=== PATIENT | male | born 1945 | race Caucasian/White ===

== ENCOUNTER → 2016-10-07 | Outpatient (CLI) | payer OTHER, MEDICARE | LOC: BHFA 14:45 | PROVIDERS: ATTEND Internal Medicine Cardiovascular Disease | DX: I50.9 Heart failure, unspecified (principal); I25.10 Atherosclerotic heart disease of native coronary artery without angina pectoris ==

== ENCOUNTER → 2017-03-07 | Outpatient (CLI) | payer OTHER, MEDICARE | LOC: FIMAGING 11:53 | PROVIDERS: ATTEND Internal Medicine | DX: M54.2 Cervicalgia (principal); M54.6 Pain in thoracic spine; I65.23 Occlusion and stenosis of bilateral carotid arteries ==

== ENCOUNTER → 2017-05-05 | Outpatient (CLI) | payer OTHER, MEDICARE | LOC: BHFA 15:45 | PROVIDERS: ATTEND Internal Medicine Cardiovascular Disease | DX: I25.10 Atherosclerotic heart disease of native coronary artery without angina pectoris (principal); E78.5 Hyperlipidemia, unspecified; I11.9 Hypertensive heart disease without heart failure; I43 Cardiomyopathy in diseases classified elsewhere ==

== ENCOUNTER 2017-06-03 10:32 | Emergency (ER) | payer OTHER, MEDICARE ==
--- NOTE | 2017-06-03 10:57 | EDPHY ---
H & P Stated Complaint: episode of sweating and slower cognitive functioning today Time Seen by Provider: 06/03/17 10:43 HPI/ROS: CHIEF COMPLAINT: Confusion HISTORY OF PRESENT ILLNESS: The patient is an anticoagulated 71 y/o male with a history of diabetes and CAD arriving with his complaining of cognitive slowness onset 1.5 hours ago, around 09:30. This morning he couldn't figure out how to put his shoes on or tie them. On the car ride to his family member's doctor's appointment he began to feel like he was "gradually slipping into confusion." He felt very hungry and had profuse sweating. He notes he recently started a new unknown diabetes medication and is compliant with all of his other medications. He normally checks his BGL three times daily and runs between 100-300. His last HgbA1C was 8.2. His BGL on arrival here was 52 and he feels much better after drinking juice. He denies recent illness, abdominal pain , chest pain, dizziness, headache, vomiting, fever, cough. He does feel more fatigued for the last 2 weeks since increasing his Carvedilol from 12.5mg to 25mg. REVIEW OF SYSTEMS: A 10 point review of systems was performed and is negative with the exception of the elements mentioned in the history of present illness. Past medical history: on Plavix; Hypertension; CAD; Diabetes - Glimepiride, Metformin, Lantus; Hearing loss - hearing aid; kidney stones; TIA in 2013 Past surgical history: Two cardiac stents; left arm ortho surgery due to trauma ; appendectomy; tonsillectomy Family history: noncontributory Social history: at bedside. Nonsmoker. He drinks a glass of wine daily. Retired, former middle school math and computer mechanic. PCP: Dr. Phoebe Be. Plug Overwrap Machine Tender: Dr. Macdonald. General Appearance: Alert, no acute distress. BP 148/87 Eyes: Pupils equal and round, no conjunctival injection, no discharge. ENT, Mouth: Mucous membranes are moist, no oropharyngeal erythema or edema. Neck: No lymphadenopathy, supple. Respiratory: Lungs are clear to auscultation; no wheezes, rales, or rhonchi. Cardiovascular: Regular rate and rhythm; no murmur, rub, or gallop. Gastrointestinal: Abdomen is soft and non tender, no masses or organomegaly, bowel sounds normal. Skin: Warm and dry, no rashes, normal color. Back: Nontender to palpation over the thoracolumbar spine. Extremities: No lower extremity edema, no calf tenderness or swelling. Neurological: Alert and oriented. Moving all four extremities easily and equally. Cranial nerves II through XII are examined and are intact (visual acuity not tested). Strength is 5 over 5 bilaterally with testing of all major motor groups. Sensation is intact to light touch over all 4 extremities. Gait is normal. [id number] is performed accurately. Psychiatric: Normal affect. - Personal History Current Tetanus/Diphtheria Vaccine: Yes - Medical/Surgical History Hx Asthma: No Hx Chronic Respiratory Disease: No Hx Diabetes: Yes Hx Cardiac Disease: Yes Hx Renal Disease: No Hx Cirrhosis: No Hx Alcoholism: No Hx HIV/AIDS: No Hx Splenectomy or Spleen Trauma: No Other PMH: LAD stent . stent 2015. tia 04/2014. Tonsilectomy. appy. Left arm repair with hardware. kidney stones. DM2. HTN - Social History Smoking Status: Never smoked Constitutional: Initial Vital Signs Temperature (C) 36.3 C 06/03/17 10:37 Heart Rate 73 06/03/17 10:37 Respiratory Rate 19 06/03/17 10:37 Blood Pressure 148/87 H 06/03/17 10:37 O2 Sat (%) 97 06/03/17 10:37 O2 Delivery Mode Room Air Allergies/Adverse Reactions: Sulfa (Sulfonamide Antibiotics) Allergy (Verified 06/03/17 10:35) Home Medications: Medication Instructions Recorded Aspirin [Aspirin 81mg (*)] 81 mg PO DAILY 05/28/14 Clopidogrel Bisulfate [Plavix (*)] 75 mg PO DAILY 05/28/14 Benazepril HCl [Lotensin (*)] 40 mg PO DAILY 03/02/16 Canagliflozin/Metformin HCl 1 each PO BIDMEAL 03/02/16 [Invokamet 50-500 mg Tablet] Glimepiride [Amaryl 2 MG (*)] 2 mg PO BIDMEAL 03/02/16 metFORMIN HCL [Glucophage 500 mg 500 mg PO DAILY@12 03/02/16 (*)] Simvastatin [Zocor] 80 mg PO HS 04/09/16 Temazepam [Restoril 15 MG (*)] 15 mg PO HSPRN PRN 04/09/16 Canagliflozin [Invokana] 100 mg PO DAILY@12 07/09/16 Carvedilol [Coreg (*)] 12.5 mg PO BID 07/09/16 Multivitamins [Multivitamin (*)] 1 each PO DAILY 07/09/16 Omeprazole [Prilosec 20 mg] 40 mg PO DAILY 07/09/16 diphenhydrAMINE [Benadryl 50 MG 50 mg PO HS 07/09/16 (*)] Acetaminophen [Tylenol 325mg (*)] 650 mg PO Q4HRS PRN #0 tab 07/10/16 Aspirin [Aspirin 81mg (*)] 81 mg PO DAILY #0 tab.chew 07/10/16 guaiFENesin/CODEINE PHOS 10 ml PO Q6 PRN #100 ml 07/17/16 [Robitussin AC oral liquid (RX)] Lantus 100 UNITS/ML (*) 06/03/17 Medical Decision Making ED Course/Re-evaluation: 71 y/o male with a history of diabetes who presents for evaluation of confusion onset this morning. His symptoms are consistent with hypoglycemia and his BGL upon arrival here was 52. He feels significantly improved after drinking juice. IV established. Labs drawn. We will attempt to contact his pharmacy to determine what additional diabetic medication he is taking. The new medication he is taking is called Actos. 1200: Repeat BGL is 101. 1340: BGL is 139. He has eaten lunch. He remains neurologically intact. 1412: Consulted with Dr. Macdonald, patient's medical office manager. She recommends decreasing nighttime dose of insulin. Instructions relayed to patient and his . He will follow up PC and/or medical office manager. I think that this morning's altered mental status is due to hypoglycemia. I do not find evidence of infection, electrolyte abnormality, and do not suspect stroke or ICH. Departure - Departure Disposition: Home, Routine, Self-Care Clinical Impression: Confusion, Hypoglycemia Condition: Good Instructions: Hypoglycemia in a Person with Diabetes (ED) Additional Instructions: 1. Follow up with your medical office manager within the next 1-2 days. Call her office tomorrow to arrange an appointment. 2. Change your nighttime dose of Lantus to 10 units. 3. Do not take any of your rapid acting insulin--I know that you didn't take this today, don't use it. Otherwise continue with your or medications as prescribed. 4. Continue to monitor your blood sugars and record these values. Referrals: Phoebe Be MD [Primary Care Provider] - As per Instructions Trinidad Macdonald MD [Medical Doctor] - As per Instructions Report Scribed for: Nandini Matias Report Scribed by: Yanet Neal Date of Report: 06/03/17 Time of Report: 11:32 Physician Review and Approval Statement: 06/07/17 12:24 Portions of this chart were entered by a medical records manager. I personally performed the HPI, PE, MDM. I have reviewed the document and agree with the contents.
[2017-06-03 14:07] VITALS: BP 154/92; PULSE 69; RESP 15; O2SAT 98
[2017-06-03 14:26] VITALS: TEMP 98.8
== END 2017-06-03 14:25 | disposition home or self-care (01) ==
DX: R41.0 Disorientation, unspecified (principal); E11.649 Type 2 diabetes mellitus with hypoglycemia without coma; I10 Essential (primary) hypertension; Z79.4 Long term (current) use of insulin; Z79.82 Long term (current) use of aspirin; Z79.84 Long term (current) use of oral hypoglycemic drugs; Z95.5 Presence of coronary angioplasty implant and graft
CPT/HCPCS: 82947-QW

== ENCOUNTER → 2017-07-18 | Outpatient (CLI) | payer OTHER, MEDICARE ==
[~2017-07-18] MED LIST: IOPAMIDOL (ISOVUE-300) 100 ML BTL ONE
== END ==
LOC: CIMAGING 12:17
PROVIDERS: ATTEND Internal Medicine
DX: S22.31XA Fracture of one rib, right side, initial encounter for closed fracture (principal); M48.061 Spinal stenosis, lumbar region without neurogenic claudication; M51.26 Other intervertebral disc displacement, lumbar region; M46.96 Unspecified inflammatory spondylopathy, lumbar region; I70.0 Atherosclerosis of aorta; D73.89 Other diseases of spleen
CPT/HCPCS: 74177; Q9967; 82565-PO

== ENCOUNTER → 2018-01-21 | Outpatient (CLI) | payer OTHER, MEDICARE | LOC: BHFA 13:15 | PROVIDERS: ATTEND Internal Medicine Cardiovascular Disease | DX: I25.10 Atherosclerotic heart disease of native coronary artery without angina pectoris (principal); I50.9 Heart failure, unspecified | CPT/HCPCS: 78452; 93017; 93880; A9500; J2785 ==

== ENCOUNTER → 2018-02-04 | Outpatient (CLI) | payer OTHER, MEDICARE | LOC: BHFA 13:15 | PROVIDERS: ATTEND Internal Medicine Cardiovascular Disease | DX: I25.10 Atherosclerotic heart disease of native coronary artery without angina pectoris (principal); R07.9 Chest pain, unspecified; R94.30 Abnormal result of cardiovascular function study, unspecified ==

== ENCOUNTER 2018-02-10 07:21 | Day surgery (SDC) | payer OTHER, MEDICARE ==
[2018-02-10] MEDS ORDERED: NS 1,000 ML IV SCH (07:25)
[2018-02-10] MEDS ORDERED: TEMAZEPAM 15 MG CAP PO PRN (07:25)
[2018-02-10] MEDS ORDERED: FAMOTIDINE 20 MG TAB PO ONE (07:25)
[2018-02-10] MEDS ORDERED: NITROGLYCERIN 0.4 MG BTL SL PRN ×2 (07:25→12:47)
[2018-02-10] MEDS ORDERED: diphenhydrAMINE 25 MG CAP PO ONE (07:25)
[2018-02-10] MEDS ORDERED: ASPIRIN EC 325 MG TAB PO ONE (07:25)
[2018-02-10] MEDS ORDERED: ACETAMINOPHEN 325 MG TAB PO PRN (07:25)
[2018-02-10] MEDS ORDERED: DIAZEPAM 5 MG TAB PO ONE (07:25)
--- NOTE | 2018-02-10 07:44 | CPEKG ---
Heart Rate: 74 RR Interval: 811 P-R Interval: 180 QRSD Interval: 94 QT Interval: 400 QTC Interval: 444 P [place]: 36 QRS [place]: 2 T Wave [place]: 15 EKG Severity - NORMAL ECG - EKG Impression: SINUS RHYTHM EKG Impression: COMPARED WITH 07/10/2016, T ABNORMALITIES HAVE IMPROVED. QT INTERVAL IS SHORTER Electronically Signed By: Yolanda Serna 10-Feb-2018 20:31:21
[2018-02-10 08:09] LABS: PLATELET COUNT 252 10^3/uL (150-400)
[2018-02-10 08:13] LABS: INR 1.06 (0.83-1.16)
[2018-02-10] MEDS ORDERED: fentaNYL 100 MCG/2 ML INJ ONE (09:03)
[2018-02-10] MEDS ORDERED: LIDOCAINE 1% 300 MG/30 ML SDV ONE (09:03)
[2018-02-10] MEDS ORDERED: MIDAZOLAM 2 MG/2 ML VIAL ONE (09:04)
[2018-02-10] MEDS ORDERED: IOPAMIDOL (ISOVUE-370) 150 ML BTL IV ONE (09:04)
[2018-02-10] MEDS ORDERED: PRASUGREL HCL 10 MG TAB PO ONE (09:45)
--- NOTE | 2018-02-10 09:48 | PDHPUP ---
History & Physical Update H&P update statement: This history and physical update is based on an assessment of the patient which was completed after admission or registration (within 24 hours), but prior to the surgery/procedure. H&P update: H&P reviewed & patient examined, no change in patient's condition since H&P completed
--- NOTE | 2018-02-10 09:48 | PDPROPOC ---
Sedation Plan of Care Sedation Plan of Care: mental status noted, patient can tolerate sedation ASA Classification: ASA 2 Planned drugs: fentanyl, midazolam Mallampati Score: Class 2 Mallampati Reference Image: Patient passed 3-3-2 rule?: Yes
[2018-02-10] MEDS ORDERED: BIVALIRUDIN 250 MG/5 ML VIAL IV ONE (10:23)
--- NOTE | 2018-02-10 12:18 | CPIP ---
[f rep st] INVASIVE CARDIAC PROCEDURE DATE OF PROCEDURE: 02/10/2018 INDICATION FOR PROCEDURE: Chest pain. PROCEDURE: 1. Nonselective right groin sheathogram. 2. Bilateral selective coronary angiography. 3. Left heart catheterization. 4. Left ventriculogram. HISTORY: Briefly, this is a 72-year-old male with history of multiple stents to the proximal LAD, wh o has been complaining of unstable anginal like symptoms as an outpatient with positive stress testin g. Given these findings, patient consented for left heart catheterization. DESCRIPTION OF PROCEDURE: After informed consent was obtained, the patient was brought to [facility] where the right groin was prepped and draped in usual sterile fashion. Using lidocaine, a short 6-Panamanian s sergio introduced into the right femoral artery verified angiographically. Using a 6-Panamanian sheath, a JL4 catheter was advanced to the left coronary artery. Images of the left coronary artery revealed normal left main. There was a ramus intermedius which had 40% to 50% disease in its mid aspect. The re was a small circumflex system giving off a marginal 1 proximally, which was healthy and free of di sease. The LAD had stents in its proximal aspect, which had severe in-stent restenosis. Distally, t he LAD appeared to be patent but small. There was a diagonal artery coming off the mid LAD which was patent as well. After images were obtained, the JL4 catheter was removed. The JR4 catheter was the n advanced to the right coronary artery. Images of the right coronary artery revealed normal ostial RCA. There was a 30% to 40% disease in the proximal RCA. Distally, the RPLS appeared to be healthy and free of disease. The RPDA had diffuse segmental areas of disease ranging from 70% to 80%. After images were obtained the JR4 catheter was removed. A pigtail catheter was advanced to left ventricl e. LVEDP is 15 mmHg. Left ventricle in ROSARIO projection showed EF of 55%, with no wall motion abnorma lities. No pullback gradient between the LV and aorta. Pigtail catheter was removed over the 0.03 5 wire. Right groin was closed with a 6-Panamanian sheath. The patient tolerated the procedure well wit h no complications. IMPRESSION: 1. Severe ISR of the proximal LAD, which has had multiple PCIs in the past with patent distal LAD. 2. Severe disease of the mid distal RPDA with moderate disease of the proximal RCA. 3. Normal ejection fraction. PLAN: Given the fact the patient has had numerous episodes in the last 15 years of in-stent restenos is of the proximal LAD and the disease appears to be progressing proximally towards the left main, I feel that we should obtain a surgical consult for possible GONZALEZ to LAD. Obviously if there is a poss ibility of a graft to the RPDA this should be entertained as well. However, there is such diffuse di sease in the RPDA there may not be any healthy areas to tie a graft into. We will consult Dr. Quintana this morning and proceed accordingly. /[id number]/MODL
[2018-02-10] MEDS ORDERED: ATROPINE SULFATE 1 MG/10 ML SYR IVP PRN (12:47)
[2018-02-10] MEDS ORDERED: OXYCODONE/APAP 5/325 TAB PO PRN (12:47)
[2018-02-10] MEDS ORDERED: ONDANSETRON 4 MG/2 ML VIAL IVP PRN (12:47)
[2018-02-10] MEDS ORDERED: HYDROCODONE/APAP 5/325 TAB PO PRN (12:47)
[2018-02-10 15:41] VITALS: BP 161/78
== END 2018-02-10 16:10 | disposition home or self-care (01) ==
LOC: FCATH 07:21
PROVIDERS: ATTEND Internal Medicine Cardiovascular Disease
PROC: B2151ZZ Fluoroscopy of Left Heart using Low Osmolar Contrast (ICD-10-PCS; principal; 2018-02-10)
PROC: B2111ZZ Fluoroscopy of Multiple Coronary Arteries using Low Osmolar Contrast (ICD-10-PCS; principal; 2018-02-10)
PROC: 4A023N7 Measurement of Cardiac Sampling and Pressure, Left Heart, Percutaneous Approach (ICD-10-PCS; principal; 2018-02-10)
DX: R07.9 Chest pain, unspecified (principal); T82.855A Stenosis of coronary artery stent, initial encounter; I25.10 Atherosclerotic heart disease of native coronary artery without angina pectoris; R94.30 Abnormal result of cardiovascular function study, unspecified; E11.22 Type 2 diabetes mellitus with diabetic chronic kidney disease; N18.3 Chronic kidney disease, stage 3 (moderate); I50.9 Heart failure, unspecified; I77.89 Other specified disorders of arteries and arterioles; G25.0 Essential tremor; E78.5 Hyperlipidemia, unspecified; G47.00 Insomnia, unspecified; I25.2 Old myocardial infarction; Z79.82 Long term (current) use of aspirin; Z79.4 Long term (current) use of insulin; Z82.49 Family history of ischemic heart disease and other diseases of the circulatory system; Z95.5 Presence of coronary angioplasty implant and graft; Z88.2 Allergy status to sulfonamides
CPT/HCPCS: C1760; J0583; J1644; J2250; J3010; Q9967

== ENCOUNTER 2018-02-16 11:09 | Inpatient (IN) | payer OTHER, MEDICARE ==
--- NOTE | 2018-02-16 10:27 | PDGENHP ---
History and Physical - Chief Complaint unstable angina with severe CAD - History of Present Illness 72M with unstable angina and h/o CAD s/p stenting with recent LHC revealing severe ISR of LAD stent here for elective surgical revascularization. Pt currently comfortable without chest pain or SOB. Started on ABX 02/15 for dysuria although U/A checked at urgent care unremarkable. Culture pending. Pt denies weakness, lightheadedness, SOB, cough, orthopnea, PND, CP, palpitations, abd pain, dysuria, or LE edema. History Information - Allergies/Home Medication List Allergies/Adverse Reactions: Sulfa (Sulfonamide Antibiotics) Allergy (Intermediate, Verified 02/04/18 15:28) Hives Home Medications: Aspirin [Aspirin 81mg (*)] 81 mg PO DAILY 05/28/14 [Last Taken 02/13/18] Clopidogrel Bisulfate [Plavix (*)] 75 mg PO DAILY 05/28/14 [Last Taken 02/10/18] Benazepril HCl [Lotensin (*)] 40 mg PO DAILY@12 03/02/16 [Last Taken 02/15/18] metFORMIN HCL [Glucophage 500 mg (*)] 500 mg PO QID 03/02/16 [Last Taken ] Simvastatin [Zocor] 80 mg PO HS 04/09/16 [Last Taken 02/14/18] Temazepam [Restoril 15 MG (*)] 15 mg PO HS 04/09/16 [Last Taken 02/15/18] Carvedilol [Coreg (*)] 18.75 mg PO BID 07/09/16 [Last Taken 02/15/18] Multivitamins [Multivitamin (*)] 1 each PO DAILY 07/09/16 [Last Taken 02/13/18] diphenhydrAMINE [Benadryl 50 MG (*)] 50 mg PO HS 07/09/16 [Last Taken 2 Days Ago ~02/14/18] Insulin Glargine [Lantus 100 UNITS/ML (*)] 14 units SC HS 06/03/17 [Last Taken 02/15/18] Ascorbic Acid [Vitamin C 500 mg (*)] 500 mg PO BID 02/05/18 [Last Taken 02/13/18 ] Ibuprofen [Motrin (*)] 200 mg PO HS 02/05/18 [Last Taken 02/12/18] Insulin Glargine [Lantus 100 UNITS/ML (*)] 17 units SC DAILY 02/05/18 [Last Taken 02/15/18] Insulin Lispro [Humalog] 0 unit SQ TIDMEAL 02/05/18 [Last Taken 02/09/18] Nitroglycerin [Nitrostat 0.4 mg (*)] 0.4 mg SL Q5M PRN 02/05/18 [Last Taken Unknown] Omeprazole 40 mg PO DAILY 02/05/18 [Last Taken 02/15/18] Pioglitazone HCl [Actos 15mg (*)] 15 mg PO DAILY 02/05/18 [Last Taken 02/15/18] I have personally reviewed and updated: medical history, social history, surgical history - Past Medical History diabetes type 1, hypertension, hyperlipidemia - Surgical History Reports: no pertinent surgical hx - Social History Smoking Status: Never smoked Review of Systems Review of Systems: ROS: 10pt was reviewed & negative except for what was stated in HPI & below Physical Exam Physical Exam: Constitutional: no apparent distress, appears nourished, not in pain Eyes: anicteric sclera Ears, Nose, Mouth, Throat: moist mucous membranes, hearing normal, ears appear normal, no oral mucosal ulcers Cardiovascular: no murmur, rub, or gallop Respiratory: no respiratory distress, no rales or rhonchi, clear to auscultation Gastrointestinal: soft, non-tender abdomen Genitourinary: no bladder fullness Skin: warm, normal color Musculoskeletal: full muscle strength Neurologic: AAOx3, sensation intact bilaterally Psychiatric: interacting appropriately, not anxious, not encephalopathic, thought process linear Lab Data & Imaging Review Patient ABO/Rh AB POSITIVE 02/13/18 11:57 Antibody Screen NEGATIVE 02/13/18 11:57 Labs reviewed in [facility] remarkable for A1c 7.8%, Cr 1.5, HCT 36.5 Imaging Review: LHC in [facility] Visualized and Interpreted Chest x-ray results: Yes Chest X-Ray results: normal Visualized and Interpreted EKG results: Yes EKG Interpretation: Positive for: normal sinsus rhythm Assessment & Plan Assessment: CAD Plan: CABG today
[~2018-02-16 11:09] MED LIST changes: +CITRATE DEXTROSE SOLN 500 ML BAG MISC ONE; -IOPAMIDOL (ISOVUE-300) 100 ML BTL ONE; +MINERAL OIL 10 ML VIAL ONE; +MUPIROCIN 2% 22 GM OINT NS ONE; +PAPAVERINE HCL 60 MG/2 ML SDV ONE; +VERAPAMIL 5 MG/2 ML VIAL ONE; +ceFAZolin 2 GM/DEXTROSE 100 ML IV ONE; +niCARdipine/NACL 200 ML IV ONE
[2018-02-16] MEDS ORDERED: CALCIUM CHLORIDE 1 GM/10 ML INJ ONE ×2 (13:23→18:53)
[2018-02-16] MEDS ORDERED: PROTAMINE SULFATE 50 MG/5 ML VIAL IVP ONE (13:23)
[2018-02-16] MEDS ORDERED: MILRINONE/DEXTROSE/100 ML BAG IV ONE (13:23)
[2018-02-16] MEDS ORDERED: ALBUMIN 5% 250 ML BOTTLE IV ONE (13:23)
[2018-02-16] MEDS ORDERED: NA BICARBONATE 50 MEQ/50 ML VIAL ONE (13:24)
[2018-02-16] MEDS ORDERED: niCARdipine/NACL/200 ML BAG IV ONE (13:24)
[2018-02-16] MEDS ORDERED: CITRATE DEXTROSE SOLN 500 ML BAG ONE (13:24)
[2018-02-16] MEDS ORDERED: HEPARIN 10,000 UNIT/10 ML MDV (1,000 UNIT/ML) ONE (13:24)
[2018-02-16] MEDS ORDERED: LIDOCAINE 2% 100 MG/5 ML SYR ONE (13:24)
[2018-02-16] MEDS ORDERED: ADENOSINE 6 MG/2 ML VIAL ONE (13:24)
[2018-02-16] MEDS ORDERED: AMIODARONE HCL 150 MG/3 ML VIAL ONE (13:24)
[2018-02-16] MEDS ORDERED: DOPamine/DEXTROSE/250 ML BAG IV ONE (13:24)
[2018-02-16] MEDS ORDERED: ceFAZolin 1 GM VIAL ONE ×3 (13:25→16:44)
[2018-02-16] MEDS ORDERED: VERAPAMIL 5 MG/2 ML VIAL ONE (13:25)
[2018-02-16] MEDS ORDERED: NITROGLYCERIN/D5W 50 MG/250 ML BOTTLE IV ONE (13:25)
[2018-02-16] MEDS ORDERED: PAPAVERINE HCL 60 MG/2 ML SDV ONE (13:25)
[2018-02-16] MEDS ORDERED: MAGNESIUM SULFATE 1 GM/2 ML VIAL ONE (13:25)
[2018-02-16] MEDS ORDERED: methylPREDNISolone SOD SUCC 1 GM/8 ML VIAL ONE (13:25)
[2018-02-16] MEDS ORDERED: MINERAL OIL 10 ML VIAL ONE (13:26)
[2018-02-16] MEDS ORDERED: MIDAZOLAM 2 MG/2 ML VIAL IVP ONE (13:54)
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
[2018-02-16] MEDS ORDERED: fentaNYL 250 MCG/5 ML INJ ONE ×2 (14:07→15:54)
[2018-02-16] MEDS ORDERED: PROPOFOL/EMULSION 500 MG/50 ML BOTTLE IV ONE (14:08)
[2018-02-16] MEDS ORDERED: ROCURONIUM 100 MG/10 ML VIAL ONE (14:08)
[2018-02-16] MEDS ORDERED: PHENYLEPHRINE HCL 100 MCG/ML SYR ONE ×2 (14:14→18:21)
[2018-02-16] MEDS ORDERED: MANNITOL 25% 12.5 GM/50 ML VIAL IVP ONE (15:00)
[2018-02-16] MEDS ORDERED: VERAPAMIL 5 MG, NITROGLYCERIN 2.5 MG, HEPARIN 500 UNIT, SODIUM BICARBONATE 0.2 MEQ in L... MISC ONE (15:00)
[2018-02-16] MEDS ORDERED: PHENYLEPHRINE HCL 50 MG in NS 250 ML IV ONE (15:00)
[2018-02-16] MEDS ORDERED: SODIUM BICARBONATE 20 MEQ, LIDOCAINE 1% 10 ML in NORMOSOL-R 1,000 ML MISC ONE (15:00)
[2018-02-16] MEDS ORDERED: INSULIN REGULAR HUMAN 100 UNIT in NS 100 ML IV ONE (15:00)
[2018-02-16] MEDS ORDERED: AMINOCAPROIC ACID 5 GM/20 ML VIAL IV ONE (15:00)
[2018-02-16] MEDS ORDERED: NOREPINEPHRINE BITARTRATE 16 MG in NS 250 ML IV ONE (15:00)
--- NOTE | 2018-02-16 16:50 | ASMTCMCOM ---
CM Note CM Note Notes: 72yr old male admitted for unstable angina, CP. Has a Hx of CAD-stent, DM-1, HTN, HLD. To have a CABG. Lives with his in [place]. Therapies to [facility] to follow for discharge needs. Date Signed: 02/16/2018 04:49 PM Electronically Signed By:Samantha Najera LCSW
[2018-02-16] MEDS ORDERED: HYDROmorphONE/DILAUDID 2 MG/ML INJ ONE ×2 (18:06→18:14)
[2018-02-16] MEDS ORDERED: MIDAZOLAM 2 MG/2 ML VIAL ONE (18:27)
[2018-02-16] MEDS ORDERED: METOCLOPRAMIDE 10 MG/2 ML VIAL IVP PRN (18:43)
[2018-02-16] MEDS ORDERED: PANTOPRAZOLE SODIUM 40 MG VIAL IVP ONE (18:43)
[2018-02-16] MEDS ORDERED: ONDANSETRON 4 MG/2 ML VIAL IVP PRN (18:43)
[2018-02-16] MEDS ORDERED: fentaNYL 100 MCG/2 ML INJ IVP PRN (18:43)
[2018-02-16] MEDS ORDERED: CEPACOL LOZENGE PO PRN (18:43)
[2018-02-16] MEDS ORDERED: HYDROCODONE/APAP 5/325 TAB PO PRN (18:43)
[2018-02-16] MEDS ORDERED: LACTULOSE 20 GM/30 ML UDCUP PO PRN (18:43)
[2018-02-16] MEDS ORDERED: MAGNESIUM HYDROXIDE 30 ML UDCUP PO PRN (18:43)
[2018-02-16] MEDS ORDERED: POTASSIUM Cl (KCl) 50 ML IV PRN (18:43)
[2018-02-16] MEDS ORDERED: SODIUM CL NASAL 45 ML BTL EACHNARE PRN (18:43)
[2018-02-16] MEDS ORDERED: ACETAMINOPHEN 650 MG SUPP PR PRN (18:43)
[2018-02-16] MEDS ORDERED: MEPERIDINE 25 MG/0.5 ML AMP IVP PRN (18:43)
[2018-02-16] MEDS ORDERED: BISACODYL 10 MG SUPP PR PRN (18:43)
[2018-02-16] MEDS ORDERED: MAGNESIUM SULF 2 GM/WATER 50 ML IV ONE (18:43)
[2018-02-16] MEDS ORDERED: D50W 25 GM/50 ML SYR IVP PRN (18:43)
[2018-02-16] MEDS ORDERED: NS 1,000 ML IV SCH (18:45)
[2018-02-16] MEDS ORDERED: PHENYLEPHRINE 10 MG/ML SDV ONE (18:53)
[2018-02-16] MEDS ORDERED: INSULIN REGULAR HUMAN 100 UNIT in NS 100 ML IV SCH (19:00)
--- NOTE | 2018-02-16 19:09 | GOP ---
[f rep st] OPERATIVE REPORT DATE OF OPERATION: 02/16/2018 SURGEON: Toi Quintana DO FUNNEL SETTER: Lazaro Krueger P.A.-C. ANESTHESIOLOGIST: London Bruce MD. PREOPERATIVE DIAGNOSIS: Unstable angina pectoris with 3-vessel coronary artery disease 2 obstructive . POSTOPERATIVE DIAGNOSIS: Unstable angina pectoris with 3-vessel coronary artery disease 2 obstructiv e. PROCEDURE PERFORMED: 1. Coronary artery bypass grafting x3 with the left internal mammary artery to the left anterior sena cending, saphenous vein graft to the 1st diagonal, and saphenous vein graft to the distal posterior d escending artery. 2. Endoscopic vein harvest. 3. Suture ligation of the left atrial appendage. FINDINGS: Patient was noted to have significant coronary artery disease. Please see cath report. DESCRIPTION OF PROCEDURE: He was consented for surgery, brought to the operating room intubated. Mo nitoring lines were placed. He was prepped and draped in sterile classical manner. Sternotomy was p erformed. Mammary was harvested. The vein was harvested endoscopically from the left leg by GENARO Hubbard, who first assisted throughout the procedure. The patient was heparinized. Cannulated bypa ss was begun. A cardioplegic arrest was obtained with antegrade cardioplegia and topical hypothermia as well as systemic cooling. Initially, the distal PDA was performed. It was a 1.3 mm diffusely di seased vessel; however, had good flow and a graft on injection post completion. The proximal anastom osis was then brought off the ascending aorta. We then doubly ligated the left atrial appendage with silk ties. We then proceeded with grafting a diagonal with a good quality vein which was brought of f the ascending aorta. It was a 1.5 mm vessel. We then while rewarming was begun, the mid-LAD was g rafted where it was a 2 mm vessel with a good quality mammary. It was tacked to the epicardium. The cross-clamp was removed with suction on the ascending aortic vent. Spontaneous cardiac activity was noted to resume. The patient was rewarmed, weaned from bypass. Heparin was reversed with protamine . The cannula was removed and oversewn. 2 ventricular pacing wires, 1 left pleural, and 1 mediastin al drain were placed. The thymic fat could not be closed because of tension on the grafts. For that reason, they were left open. The sternum was closed in standard fashion. Patient was returned to [facility] in stable condition. /[id number]/MODL
--- NOTE | 2018-02-16 19:15 | POSTANESTH ---
Post Anesthetic Evaluation Cardiovascular Status: Normal, Stable Respiratory Status: Requires Airway Assist (intubated) Level of Consciousness/Mental Status: Moderately Sleepy Pain Control: Adequate, Prn Tx Ordered Nausea/Vomiting Control: Adequate, Prn Tx Ordered Complications Possibly Related to Anesthesia: None Noted
--- NOTE | 2018-02-16 19:18 | CPEKG ---
Heart Rate: 71 RR Interval: 845 P-R Interval: 196 QRSD Interval: 98 QT Interval: 448 QTC Interval: 487 P [place]: 22 QRS [place]: 2 T Wave [place]: 28 EKG Severity - BORDERLINE ECG - EKG Impression: SINUS RHYTHM EKG Impression: BORDERLINE PROLONGED QT INTERVAL Electronically Signed By: Zeus Feldman 18-Feb-2018 20:37:38
[2018-02-16] MEDS ORDERED: DEXMEDETOMIDINE IN 0.9 % NACL 100 ML IV SCH (20:00)
[2018-02-16] MEDS: ALBUMIN 5% 250 ML IV PRN ×2 (20:30→21:10)
[2018-02-16] MEDS: ceFAZolin 2 GM/DEXTROSE 100 ML IV SCH (22:16)
[2018-02-16] MEDS: SENNOSIDES/DOCUSATE SODIUM TAB PO SCH (22:38)
[2018-02-16] MEDS: MUPIROCIN 2% 22 GM OINT NS SCH (22:38)
[2018-02-16] MEDS ORDERED: ALBUMIN 5% 250 ML IV ONE (23:00)
[2018-02-16] MEDS ORDERED: NOREPINEPHRINE BITARTRATE 16 MG in NS 250 ML IV SCH (23:00)
[2018-02-16] MEDS ORDERED: AMIODARONE HCL 150 MG/100 ML BAG (1.5 MG/ML) IV ONE (23:14)
[2018-02-16] MEDS ORDERED: AMIODARONE 6HR INFSN (ORDER 2/3) PREMIX IV ONE (23:30)
[2018-02-16] MEDS ORDERED: AMIODARONE HCL 100 ML IV ONE (23:30)
[2018-02-17] MEDS ORDERED: AMIODARONE 18HR INFSN (ORDER 3/3) IV ONE (05:30)
[2018-02-17] MEDS ORDERED: ALBUMIN 5% 250 ML IV ONE (13:00)
[2018-02-17 20:43] LABS: PLATELET COUNT 187 10^3/uL (150-400)
[2018-02-17] MEDS ORDERED: INSULIN GLARGINE 100 UNITS/ML UNIT SC SCH (21:00)
[2018-02-17] MEDS ORDERED: FUROSEMIDE 20 MG/2 ML VIAL IVP ONE (22:45)
[2018-02-17] MEDS ORDERED: SODIUM BICARBONATE 50 MEQ/50 ML SYR IVP ONE (22:45)
[2018-02-17] MEDS ORDERED: D50W 25 GM/50 ML SYR IVP PRN (23:23)
[2018-02-18] MEDS: HEPARIN 5,000 UNIT/0.5 ML INJ SC SCH ×6 (05:12→20:47)
[2018-02-18] MEDS: ceFAZolin 2 GM/DEXTROSE 100 ML IV SCH ×4 (05:12→05:49)
[2018-02-18] MEDS: MUPIROCIN 2% 22 GM OINT NS SCH ×3 (05:13→09:06)
[2018-02-18] MEDS: ASPIRIN 81 MG CHEWABLE TAB PO SCH ×2 (05:13→08:01)
[2018-02-18] MEDS: PANTOPRAZOLE SODIUM 40 MG TAB PO SCH ×2 (05:13→08:01)
[2018-02-18] MEDS: SENNOSIDES/DOCUSATE SODIUM TAB PO SCH ×4 (05:14→20:46)
[2018-02-18] MEDS: INSULIN REGULAR HUMAN 100 UNIT/ML UNIT SC SCH ×7 (05:15→21:34)
--- NOTE | 2018-02-18 07:40 | SOAPPROG ---
SOAP Progress Note Assessment/Plan: Assessment: Yesterday's note/orders lost during [employer] purge POD#2 CABG x 3 (GONZALEZ-LAD, SV-D1, SV-distal PDA), EVH left thigh, prophylactic suture ligation of the left atrial appendage Sx progressive CAD with severe ISR of LAD - Fully revascularized with CABG. Plavix discontinued. Secondary prevention with ASA, BB as allowed by BP, and statin when eating well. Acute postoperative respiratory insufficiency - Kept intubated night of surgery for low tidal volumes and hemodynamic lability. Successfully extubated POD#1. Minimal supplemental O2 requirement. Postop paroxysmal atrial fibrillation - Assoc with mild hypotension. Successfully converted to SR on amio. Adjunctive BB as allowed by BP. [id number]- VASc score of 5. Antithrombotic prophylaxis with Eliquis if recurrent arrhythmia. Acute expected blood loss anemia - Stable. No transfusions required. Chronic sCHF - Medically compensated. Preop LVEF 55%, LVEDP 15. Marginal SBPs in AF, requiring intermittent low dose pressor support. Currently on dopa at 2 mcg/kg/min. Robust MAPs overnoc. Adequately diuresing moderate volume overload with stable renal fx. Rapid dopa wean planned this am. Staggered reintro of heart failure meds as tolerated. CKD3 - Baseline Cr 1.3. Stable. IDDM - Preop A1c of 7.8%. Postop hyperglycemia controlled with insulin gtt. Transition to basal/prandial/SSI per ICU. Hospitalist to assist with transition to home regimen. Hx of recent dysuria - Treated with Abx. Monitor for recurrence with liu out. Plan: Wean dopa to MAP > 70. Remove rashel if SBP > 100 held off dopa. Transition amio to orals. Adjust oral analgesia. Hospitalist consult for glycemic control. Possible tx to PCU later today if rhythm and BP stable. 02/18/18 07:59 Subjective: Hurting on [place] alone. A little dizzy getting OOB this am, ok now. No nausea. Thirsty. Objective: Vital Signs Temp Pulse Resp BP Pulse Ox 36.4 C 81 16 149/60 H 92 02/16/18 11:58 02/17/18 06:00 02/17/18 06:00 02/17/18 06:00 02/17/18 06:00 Laboratory Results 02/18/18 06:05 02/18/18 06:05 02/17/18 02/18/18 02/19/18 05:59 05:59 05:59 Intake Total 492 Output Total 1125 Balance -633 Physical Exam - Physical Exam General Appearance: alert, mild distress (cooperating with exam) Respiratory: crackles (coarse left sided), other (blakes x 2 to bulb suction, serosang drainage) Cardiac/Chest: regular rate, rhythm, friction rub, other (Sternotomy CDI. Vwires intact.) Abdomen: non-tender, soft, other (hypoactive BS) Skin: warm/dry Extremities: swelling (1+ gen), other (LLE venotomy CDI) ICD10 Worksheet Patient Problems: Problems Problem Status Onset Acute blood loss anemia Acute CAD (coronary artery disease) Acute Coronary stent restenosis Acute S/P CABG x 3 Acute Chest pain Acute Chronic Disease Mgmt/Transitional Care Acute
[2018-02-18] MEDS: AMIODARONE HCL 200 MG TAB PO SCH ×2 (08:01→20:46)
[2018-02-18] MEDS: INSULIN GLARGINE 100 UNITS/ML UNIT SC SCH ×2 (08:51→10:38)
[2018-02-18] MEDS: oxyCODONE IR 5 MG TAB PO PRN ×4 (08:55→20:46)
[2018-02-18] MEDS ORDERED: FUROSEMIDE 40 MG/4 ML VIAL IVP ONE ×2 (09:14→17:00)
[2018-02-18] MEDS ORDERED: HYDROmorphONE/DILAUDID 2 MG TAB PO PRN (10:00)
--- NOTE | 2018-02-18 10:56 | PDMN ---
Medical Necessity Medical necessity: IP surgery per [facility] cpt 03159 CABG X 3
[2018-02-18] MEDS ORDERED: INSULIN LISPRO 100 UNIT/ML SC ONE (13:15)
[2018-02-18] MEDS ORDERED: INSULIN GLARGINE 100 UNITS/ML UNIT SC SCH (16:09)
[2018-02-18] MEDS ORDERED: POTASSIUM CL 10 MEQ TAB PO ONE (17:00)
[2018-02-18] MEDS: CARVEDILOL 3.125 MG TAB PO SCH (17:07)
[2018-02-18] MEDS ORDERED: ENALAPRILAT DIHYDRATE 1.25 MG/ML VIAL IVP PRN (19:00)
[2018-02-18] MEDS ORDERED: TEMAZEPAM 15 MG CAP PO PRN (21:00)
--- NOTE | 2018-02-18 21:22 | PDHOSCONS ---
History and Physical - Chief Complaint Acute chest pain - History of Present Illness PRImary Service: CT surgery Reason for consultation: Hyperglycemia PCP: Dr. Be Primary Cards: Dr. Man Primary Endo: Dr. Macdonald HPI: 72 yo M p/w acute chest pain and cath inidcative of ISR of LAD, requiring CABG. 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 He underwent 3v CABG on 02/16. Since that time, he has been on insulin gtt and was transitioned to ISS + lantus, dosed lower than his previous home dosing. 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 During his hospitalization, he has had intermittent 10/10 sharp pain located at the incision sitte, exacerbated by ambulation, and alleviated by relaxing his shoulders. His PO intake has been minimal on 02/17, increasing somewhat, to smoothies on 02/18. His gluc range on was 80-120, and on 02/18 was 280-360. History Information - Allergies/Home Medication List Allergies/Adverse Reactions: Sulfa (Sulfonamide Antibiotics) Allergy (Intermediate, Verified 02/04/18 15:28) Hives Home Medications: Aspirin [Aspirin 81mg (*)] 81 mg PO DAILY 05/28/14 [Last Taken 02/13/18] Clopidogrel Bisulfate [Plavix (*)] 75 mg PO DAILY 05/28/14 [Last Taken 02/10/18] Benazepril HCl [Lotensin (*)] 40 mg PO DAILY@12 03/02/16 [Last Taken 02/15/18] metFORMIN HCL [Glucophage 500 mg (*)] 500 mg PO QID 03/02/16 [Last Taken ] Simvastatin [Zocor] 80 mg PO HS 04/09/16 [Last Taken 02/14/18] Temazepam [Restoril 15 MG (*)] 15 mg PO HS 04/09/16 [Last Taken 02/15/18] Carvedilol [Coreg (*)] 18.75 mg PO BID 07/09/16 [Last Taken 02/15/18] Multivitamins [Multivitamin (*)] 1 each PO DAILY 07/09/16 [Last Taken 02/13/18] diphenhydrAMINE [Benadryl 50 MG (*)] 50 mg PO HS 07/09/16 [Last Taken 2 Days Ago ~02/14/18] Insulin Glargine [Lantus 100 UNITS/ML (*)] 14 units SC HS 06/03/17 [Last Taken 02/15/18] Ascorbic Acid [Vitamin C 500 mg (*)] 500 mg PO BID 02/05/18 [Last Taken 02/13/18 ] Ibuprofen [Motrin (*)] 200 mg PO HS 02/05/18 [Last Taken 02/12/18] Insulin Glargine [Lantus 100 UNITS/ML (*)] 17 units SC DAILY 02/05/18 [Last Taken 02/15/18] Insulin Lispro [Humalog] 0 unit SQ TIDMEAL 02/05/18 [Last Taken 02/09/18] Nitroglycerin [Nitrostat 0.4 mg (*)] 0.4 mg SL Q5M PRN 02/05/18 [Last Taken Unknown] Omeprazole 40 mg PO DAILY 02/05/18 [Last Taken 02/15/18] Pioglitazone HCl [Actos 15mg (*)] 15 mg PO DAILY 02/05/18 [Last Taken 02/15/18] I have personally reviewed and updated: family history, medical history, social history, surgical history - Past Medical History diabetes type 2, hypertension, hyperlipidemia - Surgical History Reports: coronary bypass surgery, coronary stent - Family History Additional family history: no recent sick family contats - Social History Smoking Status: Never smoked Alcohol Use: Occasionally (wine glass nightly) Drug Use: None Additional social history: independent in ADLs Review of Systems Review of Systems: ROS: 10pt was reviewed & negative except for what was stated in HPI & below Cardiac: Reports: chest pain Physical Exam Physical Exam: Temp Pulse Resp BP Pulse Ox 36.4 C 94 16 146/71 H 91 L 02/18/18 20:00 02/18/18 20:00 02/18/18 20:00 02/18/18 20:00 02/18/18 20:00 O2 (L/minute) 3 FIO2 (%) 40 Constitutional: no apparent distress, appears nourished, obese, uncomfortable, No not in pain (mild) Eyes: PERRL, anicteric sclera, EOMI Ears, Nose, Mouth, Throat: moist mucous membranes, hearing normal, ears appear normal, no oral mucosal ulcers Cardiovascular: systolic murmur (IV/ at apex/base), irregularly irregular, diastolic murmur (II/ at apex/base), edema (trace bilat LE), No tachycardia Respiratory: reduced air movement (2/2 pain), No expiratory wheeze, No bronchial breath sounds, No respiratory distress Gastrointestinal: normoactive bowel sounds, soft, non-tender abdomen, no palpable masses, other (tube in epigastric area), No distension Skin: other (no erythema/induration/separation/tenderness at sternal site) Neurologic: AAOx3, sensation intact bilaterally, weakness Psychiatric: interacting appropriately, not anxious, not encephalopathic, thought process linear Lab Data & Imaging Review 02/18/18 06:05 02/18/18 17:50 WBC 15.04 10^3/uL (3.80-9.50) H 02/18/18 06:05 RBC 3.59 10^6/uL (4.40-6.38) L 02/18/18 06:05 Hgb 10.7 g/dL (13.7-17.5) L 02/18/18 06:05 POC Hgb 9.5 gm/dL (13.7-17.5) L 02/17/18 18:12 Hct 31.5 % (40.0-51.0) L 02/18/18 06:05 POC Hct 28 % (40-51) L 02/17/18 18:12 MCV 87.7 fL (81.5-99.8) 02/18/18 06:05 MCH 29.8 pg (27.9-34.1) 02/18/18 06:05 MCHC 34.0 g/dL (32.4-36.7) 02/18/18 06:05 RDW 13.9 % (11.5-15.2) 02/18/18 06:05 Plt Count 194 10^3/uL (150-400) 02/18/18 06:05 MPV 9.9 fL (8.7-11.7) 02/17/18 05:09 Neut % (Auto) 82.9 % (39.3-74.2) H 02/17/18 05:09 Lymph % (Auto) 6.6 % (15.0-45.0) L 02/17/18 05:09 Slope % (Auto) 10.0 % (4.5-13.0) 02/17/18 05:09 Eos % (Auto) 0.0 % (0.6-7.6) L 02/17/18 05:09 Baso % (Auto) 0.1 % (0.3-1.7) L 02/17/18 05:09 Nucleat RBC Rel Count 0.0 % (0.0-0.2) 02/17/18 05:09 Absolute Neuts (auto) 9.22 10^3/uL (1.70-6.50) H 02/17/18 05:09 Absolute Lymphs (auto) 0.73 10^3/uL (1.00-3.00) L 02/17/18 05:09 Absolute Monos (auto) 1.11 10^3/uL (0.30-0.80) H 02/17/18 05:09 Absolute Eos (auto) 0.00 10^3/uL (0.03-0.40) L 02/17/18 05:09 Absolute Basos (auto) 0.01 10^3/uL (0.02-0.10) L 02/17/18 05:09 Absolute Nucleated RBC 0.00 10^3/uL (0-0.01) 02/17/18 05:09 Immature Gran % 0.4 % (0.0-1.1) 02/17/18 05:09 Immature Gran # 0.05 10^3/uL (0.00-0.10) 02/17/18 05:09 POC Blood Source ARTERIAL 02/16/18 19:25 Patient Temperature 35.1 DEGREES 02/16/18 19:25 POC ABG pH 7.37 (7.35-7.45) 02/16/18 19:25 POC ABG pCO2 36 mmHg (34-38) 02/16/18 19:25 POC ABG pO2 48 mmHg (65-75) L 02/16/18 19:25 POC ABG HCO3 21 mEq/L (22-26) L 02/16/18 19:25 POC ABG Total CO2 22 mEq/L (23-27) L 02/16/18 19:25 POC ABG O2 Sat 87 % (92-95) L 02/16/18 19:25 POC ABG Base Excess -4.0 mEq/L (-2.5-2.5) L 02/16/18 19:25 VBG Lactic Acid Cancelled 02/18/18 02:50 POC FiO2 100.0000 % (0-100) 02/16/18 19:25 Turbidity MANAGER SHAREPOINT 02/18/18 02:50 POC Sodium 143 mEq/L (135-145) 02/17/18 18:12 Sodium 141 mEq/L (135-145) 02/18/18 06:05 POC Potassium 4.4 mEq/L (3.3-5.0) 02/17/18 18:12 Potassium 4.0 mEq/L (3.3-5.0) 02/18/18 17:50 POC Chloride 109 mEq/L (97-110) 02/17/18 18:12 Chloride 107 mEq/L (97-110) 02/18/18 06:05 Carbon Dioxide 17 mEq/l (22-31) L 02/18/18 06:05 Anion Gap 17 mEq/L (8-16) H 02/18/18 06:05 POC BUN 24 mg/dL (7-23) H 02/17/18 18:12 BUN 29 mg/dL (7-23) H 02/18/18 06:05 Creatinine 1.3 mg/dL (0.7-1.3) 02/18/18 06:05 POC Creatinine 1.4 mg/dL (0.7-1.3) H 02/17/18 18:12 Estimated GFR 54 02/18/18 06:05 Glucose 282 mg/dL (70-100) H 02/18/18 06:05 POC Glucose 366 mg/dL (70-100) H 02/18/18 21:11 Calcium 8.8 mg/dL (8.5-10.4) 02/18/18 06:05 Ionized Calcium Cancelled 02/18/18 02:50 Phosphorus 4.2 mg/dL (2.5-4.5) 02/18/18 02:50 Magnesium 1.7 mg/dL (1.6-2.3) 02/18/18 02:50 Specimen Hemolysis MANAGER SHAREPOINT 02/18/18 02:50 Patient ABO/Rh AB POSITIVE 02/13/18 11:57 Antibody Screen NEGATIVE 02/13/18 11:57 Crossmatch IS Only See Detail 02/13/18 11:57 Visualized and Interpreted Chest x-ray results: Yes Chest X-Ray results: other (LLL atelectasis) Assessment & Plan Assessment: 72 yo M p/w CAD requiring CABG, consulted for DM2 w/ hyperglycemia Plan: # DM2 w/ acute hyperglycemia. Uncontrolled, reviewed outside records including A1c 7.8%, as well as 07/10/[address] Artemio Owen when he commented that DM was poorly controlled -d/w Dr. Quintana, he request that we manage his insulin -patient recently phased in longer acting insulin (Trysiba), which lasts for approx 42hrs and his current requirement is 41u, as opposed to his previous dosing of lantus which was (31 daily units) -since the patient is steadily increasing his PO intake, would recommend that we not immediately increase to 41u, but instead increase to his previous dosing of home latus , and gauge effect -if he remains significantly hyperglycemic tomorrow despite this dosing, then we can continue uptitrating by several units AM/PM, using ISS in between -when he is medically ready to discharge, , and if he is consuming what he would consider an normal amtou of PO intake, then we can simply recommend that he restart his Trysiba at 41u at home on his regular schedule, with the caveat that the see Dr. Macdonald in the short term to review whether he requires uptitration -his will also bring in his ISS dosing, and we can review to determine whether we need to adjust to a stricter ISS scale -recommend we continue holding his Actos and Metformin, 2/2 fluid-retention/CHF and CKD3, respectively # Atelectasis. Acute, encourage IS, currently w/ ongoing chest pain at surg site # CKD stage III. Patient is nearing threshold at which he cannot safely take metformin (1.5-1.6), rec continuing to hold since his renal function is likely to fluctate with fluid shifts, and, if Cr stable at [place], OK to advise restarting metformin at that time w/ outpt lab f/u through Dr. Macdonald [facility] will continue to consult in his daily care.
[2018-02-19] MEDS: oxyCODONE IR 5 MG TAB PO PRN ×3 (00:17→19:40)
[2018-02-19] MEDS: HEPARIN 5,000 UNIT/0.5 ML INJ SC SCH ×3 (05:32→21:14)
[2018-02-19] MEDS: AMIODARONE HCL 200 MG TAB PO SCH ×2 (07:57→19:40)
[2018-02-19] MEDS: SENNOSIDES/DOCUSATE SODIUM TAB PO SCH ×2 (07:57→19:41)
[2018-02-19] MEDS: CARVEDILOL 3.125 MG TAB PO SCH ×2 (07:57→16:53)
[2018-02-19] MEDS: PANTOPRAZOLE SODIUM 40 MG TAB PO SCH (07:57)
[2018-02-19] MEDS: ASPIRIN 81 MG CHEWABLE TAB PO SCH (07:57)
[2018-02-19] MEDS: INSULIN REGULAR HUMAN 100 UNIT/ML UNIT SC SCH ×4 (07:58→21:14)
[2018-02-19] MEDS ORDERED: INSULIN GLARGINE 100 UNITS/ML UNIT SC SCH ×2 (08:00→13:09)
--- NOTE | 2018-02-19 08:07 | SOAPPROG ---
SOAP Progress Note Assessment/Plan: Assessment: POD#3 CABG x 3 (GONZALEZ-LAD, SV-D1, SV-distal PDA), EVH left thigh, prophylactic suture ligation of the left atrial appendage Sx progressive CAD with severe ISR of LAD - Fully revascularized with CABG. Plavix discontinued. Secondary prevention with ASA, BB, and statin. Acute postoperative respiratory insufficiency - Kept intubated night of surgery for low tidal volumes and hemodynamic lability. Successfully extubated POD#1. Minimal supplemental O2 requirement. Postop paroxysmal atrial fibrillation - Assoc with mild hypotension. Successfully converted to SR on amio. Adjunctive BB as allowed by BP. [id number]- VASc score of 5. Antithrombotic prophylaxis with Eliquis if recurrent arrhythmia. Acute expected blood loss anemia - Stable. No transfusions required. Chronic sCHF - Medically compensated. Preop LVEF 55%, LVEDP 15. Marginal SBPs in AF, requiring intermittent low dose pressor support. Uptrending SBPs in SR and able to start BB and lasix yest. Now mobilizing moderate volume overload. Ongoing transition to home heart failure regimen as tolerated. CKD3 - Baseline Cr 1.3. Stable. IDDM - Preop A1c of 7.8%. Postop hyperglycemia controlled with insulin gtt. Transition to basal/prandial/SSI per ICU. Further glycemic control per hospitalist. Hx of recent dysuria - Treated with Abx. No apparent recurrence post liu removal. Plan: Remove Vwire and chest tubes. Cont amio 200 mg BID. Cont coreg 3.125 mg BID. Consider inc tonight's dose. Cont lasix 40 mg IV BID. Cont inc activity as tolerated. Dispo - Possible SNF if no sig functional gains next 1-2 days. 02/19/18 07:58 Subjective: Improving pain control, appetite, and mobility, but stamina still fairly poor. Yet to walk more than 100 ft. Objective: Vital Signs Temp Pulse Resp BP Pulse Ox 36.9 C 88 16 131/69 H 93 02/19/18 07:52 02/19/18 07:52 02/19/18 07:52 02/19/18 07:52 02/19/18 07:52 Laboratory Results 02/18/18 06:05 02/19/18 05:30 02/18/18 02/19/18 02/20/18 05:59 05:59 05:59 Intake Total 1150 Output Total 3500 Balance -2350 Holding SR. Robust SBPs. Stable suppl O2 req. Improving fluid balance w stable renal fx. CTOP at removal criteria. Physical Exam - Physical Exam General Appearance: alert, no apparent distress Respiratory: decreased breath sounds (bases o/w CTA), other (blakes x 2 to bulb suction, thin serosang drainage) Cardiac/Chest: regular rate, rhythm, friction rub, other (Sternotomy and LLE venotomy CDI) Abdomen: non-tender, soft Skin: warm/dry Extremities: swelling (trace-1+ ) ICD10 Worksheet Patient Problems: Problems Problem Status Onset Acute blood loss anemia Acute CAD (coronary artery disease) Acute Coronary stent restenosis Acute S/P CABG x 3 Acute Chest pain Acute Chronic Disease Mgmt/Transitional Care Acute
[2018-02-19] MEDS ORDERED: FUROSEMIDE 40 MG/4 ML VIAL IVP SCH (09:00)
[2018-02-19] MEDS ORDERED: POTASSIUM CL 20 MEQ TAB PO SCH (09:00)
--- NOTE | 2018-02-19 13:04 | ASMTCMCOM ---
CM Note CM Note Notes: CM met w/ pt for dispo planning. PT is recommending HC vs SNF. CM met w/ pt and for dispo planning. CM provided pt w/ senior blue book. Pt is hoping that he will make some improvements before leaving the hospital. CM to follow. Plan: TBD Date Signed: 02/19/2018 01:03 PM Electronically Signed By:JAGDEEP Hsieh
[2018-02-19] MEDS ORDERED: INSULIN REGULAR HUMAN 100 UNIT/ML UNIT SC ONE ×2 (13:08→13:45)
[2018-02-19] MEDS: POLYETHYLENE GLYCOL 3350 17 GM PKT PO PRN (14:43)
--- NOTE | 2018-02-19 17:14 | HOSPPROG ---
Hospitalist Progress Note Assessment/Plan: Assessment: 72 yo M p/w CAD requiring CABG, consulted for DM2 w/ hyperglycemia Plan: # DM2 w/ acute hyperglycemia. Uncontrolled, baseline A1c 7.8% -patient recently phased in longer acting insulin (Tresiba), which lasts for approx 42hrs and his current requirement is 41u, as opposed to his previous dosing of lantus which was (31 daily units) -remains severely hyperglycemic today, increase his lantus to 20am/20pm AND modify his ISS to high (from standard) to better mirror his home ISS (which patient has provided today, and I have reviewed) -when he is medically ready to discharge, and if he is consuming what he would consider an normal amount of PO intake, then we can simply recommend that he restart his Tresiba at 41u at home on his regular schedule, with the caveat that he see Dr. Macdonald in the short term to review whether he requires uptitration -recommend we continue holding his Actos and Metformin, 2/2 fluid-retention/CHF and CKD3, respectively # Atelectasis. Acute, encourage IS, currently w/ ongoing chest pain at surg site # CKD stage III. Patient is nearing threshold at which he cannot safely take metformin (1.5-1.6), rec continuing to hold since his renal function is likely to fluctate with fluid shifts, and, if Cr stable at [place], OK to advise restarting metformin at that time w/ outpt lab f/u through Dr. Macdonald [facility] will continue to consult in his daily care. Subjective: patient reports manageable pain in chest, increasing dietary intake Objective: Vital Signs Temp Pulse Resp BP Pulse Ox 36.6 C 91 17 117/68 92 02/19/18 16:55 02/19/18 16:55 02/19/18 16:55 02/19/18 16:55 02/19/18 16:55 Laboratory Results 02/18/18 06:05 02/19/18 05:30 02/18/18 02/19/18 02/20/18 05:59 05:59 05:59 Intake Total 1150 Output Total 3500 1025 Balance -2350 -1025 - Physical Exam Constitutional: no apparent distress, appears nourished, not in pain, uncomfortable Cardiovascular: systolic murmur (III/ at base), diastolic murmur (I/ at base ), edema (trace bilat LE), No irregularly irregular, No tachycardia Respiratory: inspiratory crackles (bilat bases), No reduced air movement, No expiratory wheeze, No bronchial breath sounds, No respiratory distress Gastrointestinal: normoactive bowel sounds, soft, non-tender abdomen, distension (mild), No guarding Skin: other (no erythema/tenderness/induration/separation at sternum) Neurologic: AAOx3 Psychiatric: interacting appropriately, not anxious, not encephalopathic, thought process linear ICD10 Worksheet Patient Problems: Problems Problem Status Onset Acute blood loss anemia Acute S/P CABG x 3 Acute Coronary stent restenosis Acute CAD (coronary artery disease) Acute Chest pain Acute Chronic Disease Mgmt/Transitional Care Acute
[2018-02-19] MEDS: INSULIN GLARGINE 100 UNITS/ML UNIT SC SCH (21:14)
[2018-02-20] MEDS: HEPARIN 5,000 UNIT/0.5 ML INJ SC SCH ×3 (05:55→21:45)
[2018-02-20] MEDS ORDERED: POTASSIUM CL 20 MEQ TAB PO ONE (06:41)
--- NOTE | 2018-02-20 06:43 | SOAPPROG ---
SOAP Progress Note Assessment/Plan: POD#4: CABG x 3 (GONZALEZ-LAD, SV-D1, SV-distal PDA), EVH left thigh, prophylactic suture ligation of the left atrial appendage Sx progressive CAD with severe ISR of LAD - Fully revascularized with CABG. Plavix discontinued. Secondary prevention with ASA, BB, and statin. Postop paroxysmal atrial fibrillation - Continue amiodarone and BB. [id number]- VASc score of 5. Antithrombotic prophylaxis with Eliquis if recurrent arrhythmia. Acute expected blood loss anemia - Stable. No transfusions required. CKD3 - Baseline Cr 1.3. Stable. IDDM - Preop A1c of 7.8%. Postop hyperglycemia controlled with insulin gtt. Transition to basal/prandial/SSI per ICU. Further glycemic control per hospitalist. Hx of recent dysuria - Treated with Abx. No apparent recurrence post liu removal. Disposition - Home in the next day or two. Subjective: Feels well. Denies SOB/CP. Ambulating without difficulty using a walker. Would like to go home after hospital stay. Objective: Vital Signs Temp Pulse Resp BP Pulse Ox 36.9 C 79 16 140/75 H 94 02/20/18 04:54 02/20/18 04:54 02/20/18 04:54 02/20/18 04:54 02/20/18 04:54 Laboratory Results 02/18/18 06:05 02/20/18 04:40 02/19/18 02/20/18 02/21/18 05:59 05:59 05:59 Intake Total 1150 1200 Output Total 3500 1325 Balance -2350 -125 Physical Exam - Physical Exam General Appearance: WD/WN, alert, no apparent distress EENT: No scleral icterus (R), No scleral icterus (L) Neck: normal inspection Respiratory: No respiratory distress Cardiac/Chest: regular rate, rhythm Abdomen: non-tender, soft, No distended Skin: normal color, warm/dry Extremities: pedal edema Neuro/Psych: no motor/sensory deficits, alert, normal mood/affect, oriented x 3 ICD10 Worksheet Patient Problems: Problems Problem Status Onset Acute blood loss anemia Acute CAD (coronary artery disease) Acute Coronary stent restenosis Acute S/P CABG x 3 Acute Chest pain Acute Chronic Disease Mgmt/Transitional Care Acute
[2018-02-20] MEDS: POLYETHYLENE GLYCOL 3350 17 GM PKT PO PRN (08:06)
[2018-02-20] MEDS: SENNOSIDES/DOCUSATE SODIUM TAB PO SCH ×2 (08:06→21:40)
[2018-02-20] MEDS: INSULIN REGULAR HUMAN 100 UNIT/ML UNIT SC SCH ×4 (08:06→21:44)
[2018-02-20] MEDS: MULTIVITAMINS 1 EACH TAB PO SCH (08:07)
[2018-02-20] MEDS: PANTOPRAZOLE SODIUM 40 MG TAB PO SCH (08:07)
[2018-02-20] MEDS: CARVEDILOL 3.125 MG TAB PO SCH ×2 (08:07→17:29)
[2018-02-20] MEDS: POTASSIUM CL 20 MEQ TAB PO SCH (08:07)
[2018-02-20] MEDS: ASPIRIN 81 MG CHEWABLE TAB PO SCH (08:07)
[2018-02-20] MEDS: FUROSEMIDE 40 MG TAB PO SCH (08:07)
[2018-02-20] MEDS: ASCORBIC ACID 500 MG TAB PO SCH ×2 (08:07→21:42)
[2018-02-20] MEDS: AMIODARONE HCL 200 MG TAB PO SCH ×2 (08:07→21:41)
[2018-02-20] MEDS: ACETAMINOPHEN 325 MG TAB PO PRN ×5 (09:42→22:59)
--- NOTE | 2018-02-20 14:53 | ASMTCMCOM ---
CM Note CM Note Notes: CM met w/ pt, and daughter for dispo planning. PT continues to recommend HC vs SNF. CM to follow up w/ Lilian's team on recommendation for dispo plan. Pt will speak to daughters step father to discuss his experience at a SNF; either [facility] or [facility] in case pt needs to go to a SNF. Pt may be leaning towards either going home w/ supportive family and cardiac rehab or d/c with HC. CM provided pt w/ list of loan closet. CM to follow. Plan: TBD Date Signed: 02/20/2018 02:53 PM Electronically Signed By:JAGDEEP Hsieh
--- NOTE | 2018-02-20 16:03 | HOSPPROG ---
Hospitalist Progress Note Assessment/Plan: Assessment: 72 yo M p/w CAD requiring CABG, consulted for DM2 w/ hyperglycemia Plan: # DM2 w/ acute hyperglycemia. Uncontrolled, baseline A1c 7.8% -patient recently phased in longer acting insulin (Tresiba) at home, which lasts for approx 42hrs and his current requirement is 41u, as opposed to his previous dosing of lantus which was (31 daily units) -less hyperglycemic today, s/p increase his lantus to 20am/20pm AND modifying his ISS to high (from standard) to better mirror his home ISS -when he is medically ready to discharge, we recommend that he restart his Tresiba at 41u at home on his regular schedule (on the day after discharge), with the caveat that he see Dr. Macdonald in the short term to review whether he requires uptitration -recommend we continue holding his Actos and Metformin while hospitalized, and restarting both on the day after discharge -he should resume his home humalog ISS on the day of discharge -I do NOT recommend that he go home on lantus - his technical services analyst has started him on Tresiba in lieu of lantus -counseled patient extensively regarding all of these recommendations above # Atelectasis. Acute, encourage IS, currently w/ ongoing chest pain at surg site , patient would like to pre-treat w/ some pain Rx now so that he can increase his resp capacity -CXR w/ persistent L base atelectasis, shared w/ patient # CKD stage III. Patient is nearing threshold at which he cannot safely take metformin (1.5-1.6), rec outpt lab f/u through Dr. Macdonald [facility] will sign-off; please contact [phone] if further consultation required. Subjective: patient reports shallow insp 2/2 ongoing, mild chest pain; increasing dietary intake to home baseline Objective: Vital Signs Temp Pulse Resp BP Pulse Ox 36.7 C 83 16 112/60 92 02/20/18 11:10 02/20/18 11:10 02/20/18 11:10 02/20/18 11:10 02/20/18 11:10 Laboratory Results 02/18/18 06:05 02/20/18 04:40 02/19/18 02/20/18 02/21/18 05:59 05:59 05:59 Intake Total 1150 1200 400 Output Total 3500 1325 Balance -7740 -125 400 - Time Spent With Patient Time Spent with Patient: greater than 35 minutes Time Spent with Patient: Greater than 35 minutes spent on this patients care, greater than 50% of time spent counseling, educating, and coordinating care regarding the above mentioned plan. - Physical Exam Constitutional: no apparent distress, appears nourished, uncomfortable, No not in pain (mild) Cardiovascular: systolic murmur (II/ at base), diastolic murmur (I/ at base) , edema (trace bilat LE), No tachycardia Respiratory: reduced air movement (2/2 pain, poor effort), inspiratory crackles , No expiratory wheeze, No bronchial breath sounds, No respiratory distress Gastrointestinal: normoactive bowel sounds, soft, non-tender abdomen, no palpable masses, No distension Neurologic: AAOx3 Psychiatric: interacting appropriately, not anxious, not encephalopathic, thought process linear ICD10 Worksheet Patient Problems: Problems Problem Status Onset Acute blood loss anemia Acute S/P CABG x 3 Acute Coronary stent restenosis Acute CAD (coronary artery disease) Acute Chest pain Acute Chronic Disease Mgmt/Transitional Care Acute
[2018-02-20] MEDS: INSULIN GLARGINE 100 UNITS/ML UNIT SC SCH (21:43)
[2018-02-21] MEDS: ACETAMINOPHEN 325 MG TAB PO PRN ×3 (04:39→19:54)
[2018-02-21] MEDS: HEPARIN 5,000 UNIT/0.5 ML INJ SC SCH ×3 (04:43→21:44)
--- NOTE | 2018-02-21 08:39 | SOAPPROG ---
SOAP Progress Note Assessment/Plan: POD#5: CABG x 3 (GONZALEZ-LAD, SV-D1, SV-distal PDA), EVH left thigh, prophylactic suture ligation of the left atrial appendage Sx progressive CAD with severe ISR of LAD - Fully revascularized with CABG. Plavix discontinued. Secondary prevention with ASA, BB, and statin. Postop paroxysmal atrial fibrillation - Continue amiodarone and BB. [id number]- VASc score of 5. Antithrombotic prophylaxis with Eliquis if recurrent arrhythmia. Acute expected blood loss anemia - Stable. No transfusions required. CKD3 - Baseline Cr 1.3. Stable. IDDM - Preop A1c of 7.8%. Mgmt per hospitalist. Hx of recent dysuria - Treated with Abx. No apparent recurrence post liu removal. Disposition - Home tomorrow with outpatient cardiac rehab. Subjective: Feels well. Much more independent today. Hopeful to get home tomorrow and start outpatient cardiac rehab [facility]. Objective: Vital Signs Temp Pulse Resp BP Pulse Ox 36.8 C 84 18 151/76 H 98 02/21/18 07:39 02/21/18 07:39 02/21/18 07:39 02/21/18 07:39 02/21/18 07:39 Laboratory Results 02/18/18 06:05 02/20/18 04:40 02/20/18 02/21/18 02/22/18 05:59 05:59 05:59 Intake Total 1200 1370 Output Total 1325 1350 Balance -125 20 Physical Exam - Physical Exam General Appearance: WD/WN, alert, no apparent distress EENT: No scleral icterus (R), No scleral icterus (L) Neck: normal inspection Respiratory: No respiratory distress Cardiac/Chest: regular rate, rhythm Abdomen: non-tender, soft, No distended Skin: normal color, warm/dry Extremities: pedal edema Neuro/Psych: no motor/sensory deficits, alert, normal mood/affect, oriented x 3 ICD10 Worksheet Patient Problems: Problems Problem Status Onset Acute blood loss anemia Acute CAD (coronary artery disease) Acute Coronary stent restenosis Acute S/P CABG x 3 Acute Chest pain Acute Chronic Disease Mgmt/Transitional Care Acute
[2018-02-21] MEDS: traMADol 50 MG TAB PO PRN ×2 (09:36→17:37)
[2018-02-21] MEDS: MULTIVITAMINS 1 EACH TAB PO SCH (09:37)
[2018-02-21] MEDS: ASPIRIN 81 MG CHEWABLE TAB PO SCH (09:37)
[2018-02-21] MEDS: POTASSIUM CL 20 MEQ TAB PO SCH (09:38)
[2018-02-21] MEDS: FUROSEMIDE 40 MG TAB PO SCH (09:38)
[2018-02-21] MEDS: ASCORBIC ACID 500 MG TAB PO SCH ×2 (09:38→20:02)
[2018-02-21] MEDS: PANTOPRAZOLE SODIUM 40 MG TAB PO SCH (09:38)
[2018-02-21] MEDS: AMIODARONE HCL 200 MG TAB PO SCH ×2 (09:39→20:02)
[2018-02-21] MEDS: CARVEDILOL 6.25 MG TAB PO SCH ×2 (09:39→17:36)
[2018-02-21] MEDS: INSULIN REGULAR HUMAN 100 UNIT/ML UNIT SC SCH ×4 (09:40→21:44)
[2018-02-21] MEDS: PIOGLITAZONE HCL 15 MG TAB PO SCH (09:40)
[2018-02-21] MEDS: INSULIN DEGLUDEC SC SCH (09:41)
[2018-02-21] MEDS: CARVEDILOL 3.125 MG TAB PO SCH (09:46)
[2018-02-21] MEDS: SENNOSIDES/DOCUSATE SODIUM TAB PO SCH ×2 (09:46→19:56)
[2018-02-21] MEDS: ONDANSETRON DISINTEGRATING 4 MG TAB PO PRN (11:21)
[2018-02-21] MEDS: metFORMIN HCL 500 MG TAB PO SCH (17:37)
[2018-02-21] MEDS: HYDROCODONE/APAP 5/325 TAB PO PRN (21:45)
[2018-02-22] MEDS: HYDROCODONE/APAP 5/325 TAB PO PRN (01:53)
[2018-02-22] MEDS: ONDANSETRON DISINTEGRATING 4 MG TAB PO PRN (05:20)
[2018-02-22] MEDS: HEPARIN 5,000 UNIT/0.5 ML INJ SC SCH ×2 (05:21→14:03)
[2018-02-22] MEDS: traMADol 50 MG TAB PO PRN (05:27)
--- NOTE | 2018-02-22 06:15 | SOAPPROG ---
SOAP Progress Note Assessment/Plan: POD#6: CABG x 3 (GONZALEZ-LAD, SV-D1, SV-distal PDA), EVH left thigh, prophylactic suture ligation of the left atrial appendage Sx progressive CAD with severe ISR of LAD - Fully revascularized with CABG. Plavix discontinued. Secondary prevention with ASA, BB, and statin. Postop paroxysmal atrial fibrillation - Continue amiodarone and BB. [id number]- VASc score of 5. Antithrombotic prophylaxis with Eliquis if recurrent arrhythmia. Acute expected blood loss anemia - Stable. No transfusions required. CKD3 - Baseline Cr 1.3. Stable. IDDM - Preop A1c of 7.8%. Mgmt per hospitalist. Hx of recent dysuria - Treated with Abx. No apparent recurrence post liu removal. Disposition - Either Home without home services or SNF Subjective: Feels well. Getting stronger although not independent yet. Objective: Vital Signs Temp Pulse Resp BP Pulse Ox 36.7 C 72 15 156/80 H 92 02/22/18 04:00 02/22/18 04:00 02/22/18 04:00 02/22/18 04:00 02/22/18 04:00 Laboratory Results 02/18/18 06:05 02/20/18 04:40 02/21/18 02/22/18 02/23/18 05:59 05:59 05:59 Intake Total 1370 850 Output Total 1350 550 Balance 20 300 Physical Exam - Physical Exam General Appearance: WD/WN, alert, no apparent distress EENT: No scleral icterus (R), No scleral icterus (L) Neck: normal inspection Respiratory: No respiratory distress Cardiac/Chest: regular rate, rhythm Abdomen: non-tender, soft, No distended Skin: normal color, warm/dry Extremities: pedal edema (trace) Neuro/Psych: no motor/sensory deficits, alert, normal mood/affect, oriented x 3 ICD10 Worksheet Patient Problems: Problems Problem Status Onset Acute blood loss anemia Acute CAD (coronary artery disease) Acute Coronary stent restenosis Acute S/P CABG x 3 Acute Chest pain Acute Chronic Disease Mgmt/Transitional Care Acute
[2018-02-22] MEDS: INSULIN REGULAR HUMAN 100 UNIT/ML UNIT SC SCH ×2 (08:55→12:08)
[2018-02-22] MEDS: metFORMIN HCL 500 MG TAB PO SCH (09:21)
[2018-02-22] MEDS: MULTIVITAMINS 1 EACH TAB PO SCH (09:55)
[2018-02-22] MEDS: FUROSEMIDE 40 MG TAB PO SCH (09:55)
[2018-02-22] MEDS: PANTOPRAZOLE SODIUM 40 MG TAB PO SCH (09:55)
[2018-02-22] MEDS: ASPIRIN 81 MG CHEWABLE TAB PO SCH (09:55)
[2018-02-22] MEDS: POTASSIUM CL 20 MEQ TAB PO SCH (09:56)
[2018-02-22] MEDS: ASCORBIC ACID 500 MG TAB PO SCH (09:57)
[2018-02-22] MEDS: AMIODARONE HCL 200 MG TAB PO SCH (09:57)
[2018-02-22] MEDS: CARVEDILOL 6.25 MG TAB PO SCH (09:58)
[2018-02-22] MEDS: PIOGLITAZONE HCL 15 MG TAB PO SCH (09:59)
[2018-02-22] MEDS: INSULIN DEGLUDEC SC SCH (09:59)
[2018-02-22] MEDS: SENNOSIDES/DOCUSATE SODIUM TAB PO SCH (10:00)
[2018-02-22] MEDS ORDERED: CARVEDILOL 6.25 MG TAB PO ONE (11:07)
[2018-02-22] MEDS ORDERED: metFORMIN HCL 500 MG TAB PO SCH (12:00)
[2018-02-22] MEDS: ACETAMINOPHEN 325 MG TAB PO PRN (12:07)
[2018-02-22 12:08] VITALS: BP 144/73
--- NOTE | 2018-02-22 13:09 | ASDISCHSUM ---
Discharge Information Plan Status:Home with No Needs Medically Cleared to Leave: Discharge Date: CM D/C Disposition:Home, Routine, Self-Care ADT D/C Disposition:Home, Routine, Self-Care Projected Discharge Date: Transportation at D/C:Family Discharge Delay Reason: Follow-Up Date: Discharge Slot: Final Diagnosis:CP, Unstable angina Placement Information Patient Contact Information Contact Name:TOMMY Relationship: Address:[address] Work Phone: City:[place] Alternate Phone: State/Zip Code:[place] [address] Email: Financial Information Financial Class:Medicare Primary Plan Desc:MEDICARE INPATIENT Primary Plan Number:[id number] Secondary Plan Desc:[employer]ARP/MDR SUPPLEMENT Secondary Plan Number:[id number] Assessment Information LACE LACE Length of stay for Answers: 7-13 days current admission Acuity / Level of Answers: Yes Care: Did the patient have an inpatient admission? Comorbidities - select Answers: Coronary Artery Disease all that apply Diabetes (uncontrolled or controlled) # of Emergency department Answers: 0 visits in the last 6 months Score: 11 Date Signed: 02/22/2018 01:07 PM Electronically Signed By:Fatmata Casas RN [facility] CM Progress Note CM Note CM Note Notes: 72yr old male admitted for unstable angina, CP. Has a Hx of CAD-stent, DM-1, HTN, HLD. To have a CABG. Lives with his in [place]. Therapies to [facility] to follow for discharge needs. Date Signed: 02/16/2018 04:49 PM Electronically Signed By:Samantha Najera LCSW [facility] THIAGO Progress Note CM Note CM Note Notes: CM met w/ pt for dispo planning. PT is recommending HC vs SNF. CM met w/ pt and for dispo planning. CM provided pt w/ senior blue book. Pt is hoping that he will make some improvements before leaving the hospital. CM to follow. Plan: TBD Date Signed: 02/19/2018 01:03 PM Electronically Signed By:JAGDEEP Hsieh [facility] Progress Note CM Note CM Note Notes: CM met w/ pt, and daughter for dispo planning. PT continues to recommend HC vs SNF. CM to follow up w/ Lilian's team on recommendation for dispo plan. Pt will speak to daughters step father to discuss his experience at a SNF; either [facility] or [facility] in case pt needs to go to a SNF. Pt may be leaning towards either going home w/ supportive family and cardiac rehab or d/c with HC. CM provided pt w/ list of loan closet. CM to follow. Plan: TBD Date Signed: 02/20/2018 02:53 PM Electronically Signed By:JAGDEEP Hsieh [facility] TH[facility]O Progress Note CM Note CM Note Notes: Spoke with PT, RN & PA; pt will be returning home with the support of his & Cardiac Rehab. No other needs at this time. Dc poc-home w/cardiac rehab Date Signed: 02/22/2018 01:06 PM Electronically Signed By:Fatmata Casas RN Intervention Information Intervention Type:*IM-Signed Date of Service:02/20/2018 03:27 PM Patient Type:Inpatient Staff Member:Flory Nunez Hours: Discipline: Severity: Comment:
--- NOTE | 2018-02-22 13:17 | PDDCSUM ---
Discharge Summary Discharge Summary: ADMISSION DATE: 02/16/18 DISCHARGE DATE: 02/22/18 DISCHARGE DIAGNOSES 1. Coronary atherosclerotic disease 2. Insulin dependent diabetes mellitus with stress hyperglycemia 3. Postoperative acute blood loss anemia 4. Postoperative paroxysmal atrial fibrillation 5. Hypertension PROCEDURES 02/16/18, Toi Quintana: 1. CABG x3 (GONZALEZ-LAD, SVG-D1, SVG-PDA) 2. EVH left thigh 3. Ligation left atrial appendage HOSPITAL COURSE BY PROBLEM LIST 1. Coronary atherosclerotic disease - stable s/p CABGx3. Continue beta-black, ASA, statin for secondary prevention. 2. Insulin dependent diabetes mellitus with stress hyperglycemia - home medications restarted with adequate blood sugar control. Pt to see PCP for further mgmt this week. 3. Postoperative acute blood loss anemia with coagulopathy - no need for transfusions. 4. Postoperative paroxysmal atrial fibrillation - quick conversion to sinus rhythm with amiodarone. Anticoagulation avoided due to short duration of arrhythmia. 5. Hypertension - Lotensin stopped d/t low blood pressure. Pt instructed to call if SBP > 140 for possible reintroduction. CONDITION Good DISPOSITION Home, self-care ACTIVITY Pt was instructed on sternal precautions, activity limitations, and which problems to call [facility] with. Please see Discharge Plan in chart for specifics. DISCHARGE MEDICATIONS Continue: Aspirin [Aspirin 81mg (*)] 81 mg PO DAILY metFORMIN HCL [Glucophage 500 mg (*)] 500 mg PO QID Simvastatin [Zocor] 80 mg PO HS Temazepam [Restoril 15 MG (*)] 15 mg PO HS Multivitamins [Multivitamin (*)] 1 each PO DAILY diphenhydrAMINE [Benadryl 50 MG (*)] 50 mg PO HS Ascorbic Acid [Vitamin C 500 mg (*)] 500 mg PO BID Insulin Lispro [Humalog] SQ TIDMEAL Omeprazole 40 mg PO DAILY Pioglitazone HCl [Actos 15mg (*)] 15 mg PO DAILY Tresiba 41 units SQ DAILY Changes: Decrease Coreg from 18.75 mg BID to 12.5 mg BID New: Acetaminophen [Tylenol 325mg (*)] 325 - 650 mg PO Q4HRS PRN Amiodarone HCl [Pacerone (*)] 200 mg PO BID 30 Days Furosemide [Lasix 40 MG (*)] 40 mg PO DAILY Hydrocodone/APAP 5/325 [Beasley 5/325 (*)] 1 tab PO Q4HRS PRN #20 Potassium Cl [Klor-Con 20 meq (*)] 20 meq PO DAILY Sennosides/Docusate Sodium [Senokot-S] 1 - 2 tab PO BID PRN traMADol [Ultram 50 mg (*)] 25 - 50 mg PO Q6HRS PRN #20 Stop: Plavix, Lotensin, Nitroglycerin, Motrin PENDING STUDIES/LABS 1. CXR prior to surgical follow-up FOLLOW-UP 1. Toi Quintana, 03/03/18, 11:00 AM
[2018-02-22] MEDS ORDERED: CARVEDILOL 6.25 MG TAB PO SCH (18:00)
== END 2018-02-22 14:00 | disposition home or self-care (01) | DRG 236 ==
LOC: F2W 11:09 → F2N 12:07 → F2W 02-18 18:15
PROVIDERS: ADMIT Thoracic Surgery (Cardiothoracic Vascular Surgery); ATTEND Thoracic Surgery (Cardiothoracic Vascular Surgery)
PROC: 02L70CK Occlusion of Left Atrial Appendage with Extraluminal Device, Open Approach (ICD-10-PCS; principal; 2018-02-16 15:30)
PROC: 5A1221Z Performance of Cardiac Output, Continuous (ICD-10-PCS; principal; 2018-02-16 15:30)
PROC: 06BQ4ZZ Excision of Left Saphenous Vein, Percutaneous Endoscopic Approach (ICD-10-PCS; principal; 2018-02-16 15:30)
PROC: 02100Z9 Bypass Coronary Artery, One Artery from Left Internal Mammary, Open Approach (ICD-10-PCS; principal; 2018-02-16 15:30)
PROC: 021109W Bypass Coronary Artery, Two Arteries from Aorta with Autologous Venous Tissue, Open Approach (ICD-10-PCS; principal; 2018-02-16 15:30)
DX: I25.110 Atherosclerotic heart disease of native coronary artery with unstable angina pectoris (principal); D62 Acute posthemorrhagic anemia; I48.0 Paroxysmal atrial fibrillation; E11.65 Type 2 diabetes mellitus with hyperglycemia; E78.5 Hyperlipidemia, unspecified; I12.9 Hypertensive chronic kidney disease with stage 1 through stage 4 chronic kidney disease, or unspecified chronic kidney disease; N18.3 Chronic kidney disease, stage 3 (moderate); K21.9 Gastro-esophageal reflux disease without esophagitis; Z79.84 Long term (current) use of oral hypoglycemic drugs
CPT/HCPCS: 82435-PO; 82565-PO; 82947-PO; 84132-PO; 84295-PO; 84520-PO; 85014-PO; 97116-GP; 97161-GP; 97165-GO; 97530-GP; 97535-GO; G8978-GP-CK; G8979-GP-CI; G8980-GP-CI; G8987-GO-CL; G8988-GO-CJ; J0153; J0282; J0690; J1170; J1265; J1644; J1815; J1940; J2001; J2150; J2250; J2260; J2270; J2370; J2405; J2440; J2704; J2720; J2765; J2930; J3010; J3475; J7060; P9041

== ENCOUNTER → 2018-03-03 | Outpatient (CLI) | payer OTHER, MEDICARE | LOC: FIMAGING 08:37 | PROVIDERS: ATTEND Thoracic Surgery (Cardiothoracic Vascular Surgery) | DX: J98.11 Atelectasis (principal); J90 Pleural effusion, not elsewhere classified; Z95.1 Presence of aortocoronary bypass graft ==

== ENCOUNTER 2018-04-10 15:48 | Observation (INO) | payer OTHER, MEDICARE ==
[2018-04-10] MEDS ORDERED: NS 1,000 ML IV ONE (16:16)
[2018-04-10 16:27] LABS: PLATELET COUNT 484 10^3/uL (150-400)
--- NOTE | 2018-04-10 16:33 | EDPHY ---
HPI/HX/ROS/PE/MDM Narrative: CHIEF COMPLAINT: Hematuria, dysuria, vomiting HPI: The patient is a 72 y/o male with a history of diabetes and extensive cardiac history who is 2 months post-op from a CABG arriving via EMS with his family member complaining of hematuria with penile pain, vomiting, and possible syncopal episode this afternoon. Early this morning around 04:00 he was alerted his BGL was low around 80 so he ate a snack and returned to bed. He then woke around 09:00 and his BGL was 220. He went to the bathroom and had significant 9/ 10 penile pain while urinating bright red blood. He continued to have frequent urination with dark or bloody urine sometimes with clots throughout the day. He contacted his PCP and was evaluated in the office this afternoon. While there, "I started feeling white and lightheaded" while getting his BGL checked. He became diaphoretic, lied down, vomited, and "then I was on the floor and I don' t know how I got there." He then vomited again with an associated "fainty feeling," but did not lose consciousness. After this he decided to drive to the ED and called his family member who says he seemed slightly confused and out of breath on the phone, so she advised him to dust puller and call EMS for transport. He denies chest pain at any point. He reports his urine here is slightly less dark. He has a remote history of a prior kidney stone, but this feels different as it is only present when urinating. He takes a daily 81mg aspirin, but is not currently on any anticoagulants or other antiplatelet agents. REVIEW OF SYSTEMS: Aside from elements discussed in the HPI, a comprehensive 10-point review of systems was reviewed and is negative. PMH: CAD post CABG February 2018, [place], atrial fibrillation, CHF, chronic kidney disease stage III, diabetes, essential tremor, hyperlipidemia, appendectomy, cholecystectomy, kidney stone in mid 90. Prior medical records reviewed including cath note 02/10/18, [facility] note , and ED visit 06/03/17 for confusion. SOCIAL HISTORY: Nonsmoker. . Retired. PCP: Dr. Phoebe Be PHYSICAL EXAM: General:Patient is alert, in no acute distress. ENT:Eyes are normal to inspection. ENT inspection normal. Neck: Normal inspection. Full range of motion. Respiratory:No respiratory distress. Breath sounds normal bilaterally. Cardiovascular: Regular rate and rhythm. Strong peripheral pulses. Normal cap refill. Abdomen:The abdomen is nontender to palpation. There are no peritoneal signs. Back: Normal to inspection. No tenderness to palpation. Skin: Normal color. No rash. Warm and dry. Extremities: Normal appearance. Full range of motion. Neuro: Oriented x3. Normal motor function. Normal sensory function. ED Course: This is a 72 y/o male 2 months post CABG who presents with a several hour history of severe penile pain while urinating and dark or bloody urine with associated syncopal episode this afternoon and vomiting. He is relatively asymptomatic upon assessment. Exam is unremarkable. Plan for IV, labs, UA, EKG, chest x-ray. 1L IV NS ordered. Chest x-ray: Interval resolution of left pleural effusion. Mild subsegmental atelectasis in the left lung base. The 12 lead EKG was interpreted by myself. Concerning for ischemia. New from EKG 02/10/18 (pre CABG). See hard copy and/or "tracemaster" electronic copy for interpretation. Consulted with Dr. Serna, cardiology. She agrees that ECG concerning for ischemia , even despite previous ECG being pre-CABG. Troponin negative. Spoke with hospitalist service. Dr. Neff accepts admission. I see no signs for sepsis, hemorrhagic shock, STEMI, CVA. - Data Points Imaging Results: Imaging Impressions Chest X-Ray 04/10/18 16:16 Impression: Interval resolution of left pleural effusion. Mild subsegmental atelectasis in the left lung base. Imaging: I viewed and interpreted images myself Laboratory Results: Laboratory Results 04/10/18 16:22 04/10/18 16:22 04/10/18 04/10/18 04/10/18 16:55 16:22 16:22 WBC RBC Hgb Hct MCV MCH MCHC RDW Plt Count MPV Neut % (Auto) Lymph % (Auto) [place] % (Auto) Eos % (Auto) Baso % (Auto) Nucleat RBC Rel Count Absolute Neuts (auto) Absolute Lymphs (auto) Absolute Monos (auto) Absolute Eos (auto) Absolute Basos (auto) Absolute Nucleated RBC Immature Gran % Immature Gran # PT 14.5 SEC SEC (12.0-15.0) INR 1.11 (0.83-1.16) APTT 24.6 SEC SEC (23.0-38.0) Sodium 143 mEq/L mEq/L (135-145) Potassium 5.0 mEq/L mEq/L (3.3-5.0) Chloride 103 mEq/L mEq/L (97-110) Carbon Dioxide 26 mEq/l mEq/l (22-31) Anion Gap 14 mEq/L mEq/L (8-16) BUN 25 mg/dL H mg/dL (7-23) Creatinine 1.4 mg/dL H mg/dL (0.7-1.3) Estimated GFR 50 Glucose 107 mg/dL H mg/dL (70-100) Calcium 10.0 mg/dL mg/dL (8.5-10.4) POC Troponin I 0.00 ng/mL ng/mL (0.00-0.08) Urine Color Urine Appearance Urine pH Ur Specific Mil[place] Urine Protein Urine Ketones Urine Blood Urine Nitrate Urine Bilirubin Urine Urobilinogen Ur Leukocyte Esterase Urine RBC Urine WBC Ur Epithelial Cells Urine Mucus Urine Glucose 04/10/18 04/10/18 16:22 16:00 WBC 7.12 10^3/uL 10^3/uL (3.80-9.50) RBC 4.73 10^6/uL 10^6/uL (4.40-6.38) Hgb 12.6 g/dL L g/dL (13.7-17.5) Hct 40.1 % % (40.0-51.0) MCV 84.8 fL fL (81.5-99.8) MCH 26.6 pg L pg (27.9-34.1) MCHC 31.4 g/dL L g/dL (32.4-36.7) RDW 13.6 % % (11.5-15.2) Plt Count 484 10^3/uL H 10^3/uL (150-400) MPV 9.7 fL fL (8.7-11.7) Neut % (Auto) 71.5 % % (39.3-74.2) Lymph % (Auto) 17.4 % % (15.0-45.0) [place] % (Auto) 8.7 % % (4.5-13.0) Eos % (Auto) 1.7 % % (0.6-7.6) Baso % (Auto) 0.4 % % (0.3-1.7) Nucleat RBC Rel Count 0.0 % % (0.0-0.2) Absolute Neuts (auto) 5.09 10^3/uL 10^3/uL (1.70-6.50) Absolute Lymphs (auto) 1.24 10^3/uL 10^3/uL (1.00-3.00) Absolute Monos (auto) 0.62 10^3/uL 10^3/uL (0.30-0.80) Absolute Eos (auto) 0.12 10^3/uL 10^3/uL (0.03-0.40) Absolute Basos (auto) 0.03 10^3/uL 10^3/uL (0.02-0.10) Absolute Nucleated RBC 0.00 10^3/uL 10^3/uL (0-0.01) Immature Gran % 0.3 % % (0.0-1.1) Immature Gran # 0.02 10^3/uL 10^3/uL (0.00-0.10) PT INR APTT Sodium Potassium Chloride Carbon Dioxide Anion Gap BUN Creatinine Estimated GFR Glucose Calcium POC Troponin I Urine Color TRACIE Urine Appearance MODERATELY TURBID Urine pH 5.0 (5.0-7.5) Ur Specific [place] 1.024 (1.002-1.030) Urine Protein 2+ H (NEGATIVE) Urine Ketones TRACE H (NEGATIVE) Urine Blood 2+ H (NEGATIVE) Urine Nitrate NEGATIVE (NEGATIVE) Urine Bilirubin NEGATIVE (NEGATIVE) Urine Urobilinogen NEGATIVE EU EU (0.2-1.0) Ur Leukocyte Esterase 2+ H (NEGATIVE) Urine RBC 50-182 /hpf H /hpf (0-3) Urine WBC 50-182 /hpf H /hpf (0-3) Ur Epithelial Cells TRACE /lpf /lpf (NONE-1+) Urine Mucus 2+ /lpf H /lpf (NONE-1+) Urine Glucose NEGATIVE (NEGATIVE) Point of Care Test Results: Chemistry 04/10/18 16:55 POC Troponin I 0.00 ng/mL ng/mL (0.00-0.08) General Time Seen by Provider: 04/10/18 15:53 Initial Vital Signs: Initial Vital Signs Heart Rate 74 04/10/18 16:30 Respiratory Rate 16 04/10/18 16:30 Blood Pressure 158/92 H 04/10/18 16:30 O2 Sat (%) 96 04/10/18 16:30 O2 Delivery Mode Room Air Allergies/Adverse Reactions: Sulfa (Sulfonamide Antibiotics) Allergy (Intermediate, Verified 02/04/18 15:28) Hives Home Medications: Medication Instructions Recorded Acetaminophen [Tylenol 325mg (*)] 650 mg PO Q6 PRN 04/10/18 Ascorbic Acid [Vitamin C 500 mg 500 mg PO BID 04/10/18 (*)] Aspirin [Aspirin 81mg (*)] 81 mg PO DAILY 04/10/18 Benazepril HCl [Lotensin (*)] 10 mg PO DAILY 04/10/18 Carvedilol [Coreg] 12.5 mg PO BID 04/10/18 Furosemide [Lasix 40 MG (*)] 20 mg PO DAILY 04/10/18 Insulin Degludec [Tresiba 42 unit SQ DAILY 04/10/18 Flextouch U-100] Insulin Lispro [HumaLOG LISPRO] 0 unit SC TIDMEAL 04/10/18 Melatonin [Melatonin 5 mg] 5 mg PO HS 04/10/18 Multivitamins W-Minerals [Thera M 1 each PO DAILY 04/10/18 Plus Tablet (*)] [place]-3 Fatty Acids [Fish Oil 1000 1,000 mg PO DAILY 04/10/18 mg (*)] Omeprazole 40 mg PO DAILY 04/10/18 Ondansetron Odt [Zofran Odt 4 mg 4 mg PO Q4 PRN 04/10/18 (*)] Simvastatin 80 mg PO HS 04/10/18 Temazepam [Restoril 15 MG (*)] 15 mg PO HS 04/10/18 diphenhydrAMINE HCL [Diphen] 50 mg PO HS 04/10/18 Cephalexin 500 mg PO TID #15 capsule 04/11/18 Departure - Departure Disposition: [facility] Acute Clinical Impression: Abnormal EKG, Dysuria Hematuria Qualifiers: Hematuria type: unspecified type Qualified Code(s): R31.9 - Hematuria, unspecified Syncope Qualifiers: Syncope type: unspecified Qualified Code(s): R55 - Syncope and collapse Vomiting Qualifiers: Vomiting type: unspecified Vomiting Intractability: non-intractable Nausea presence: unspecified Qualified Code(s): R11.10 - Vomiting, unspecified Condition: Fair Report Scribed for: Sarthak Burger Report Scribed by: Yanet Nela Date of Report: 04/10/18 Time of Report: 16:01 Physician Review and Approval Statement: Portions of this note were transcribed by an ED scribe. I personally performed the history, physical exam, and medical decision making; and confirm the accuracy of the information in the transcribed note.
[2018-04-10 16:34] LABS: INR 1.11 (0.83-1.16); PROTIME(PATIENT) 14.5 SEC (12.0-15.0)
--- NOTE | 2018-04-10 16:43 | CPEKG ---
Heart Rate: 65 RR Interval: 923 P-R Interval: 180 QRSD Interval: 98 QT Interval: 424 QTC Interval: 441 P [place]: 20 QRS [place]: 14 T Wave [place]: 203 EKG Severity - ABNORMAL ECG - EKG Impression: SINUS RHYTHM EKG Impression: REPOL ABNRM SUGGESTS ISCHEMIA, ANT-LAT LEADS Electronically Signed By: Dino Charlton 12-Apr-2018 22:58:58
[2018-04-10] MEDS ORDERED: ONDANSETRON 4 MG/2 ML VIAL IVP PRN (17:33)
[2018-04-10] MEDS ORDERED: ONDANSETRON DISINTEGRATING 4 MG TAB PO PRN (17:33)
[2018-04-10] MEDS ORDERED: ACETAMINOPHEN 325 MG TAB PO PRN (17:33)
[2018-04-10] MEDS ORDERED: diphenhydrAMINE 25 MG CAP PO SCH (21:00)
--- NOTE | 2018-04-10 21:26 | GHP ---
[f rep st] HISTORY AND PHYSICAL DATE OF ADMISSION: 04/10/2018 CHIEF COMPLAINT: Hematuria, syncope. HISTORY OF PRESENT ILLNESS: A pleasant 72-year-old male with coronary artery disease, status post 3-vessel CABG February 16, on aspirin, presenting with hematuria and syncope. He did not feel well this morning, noted a low blood sugar of 80, had a snack and then improved to 220, went back to bed for a little bit. When he woke, he urinated. It was very painful bloody with multiple clots. He went to his primary doctor at 2 p.m. and while in the office , he felt very woozy, nauseated and had 2 episodes of emesis. He then awoke on his hands and knees and cannot recall what happened between. He called his family from there and they stated he sounded confused and short of breath. He has a history of kidney stones, but feels this is different. No recent fevers, chills, or sweats. No diarrhea. In the emergency room, EKG was performed that showed new anterior T-waves with repolarization abnormalities, new, which is different when compared to old. REVIEW OF SYSTEMS: I completed a 10-point review of systems, negative except as noted in HPI. PAST MEDICAL HISTORY: Coronary artery disease, status post CABG 02/16/2018, [place] with stent, atrial fibrillation, systolic heart failure, chronic kidney disease stage 3, type 2 diabetes, essential tremor, hyperlipidemia, history of kidney stones. SURGERIES: Appendectomy, cholecystectomy, CABG. FAMILY HISTORY: Mother of a cerebral hemorrhage in her 40s. Dad healthy. SOCIAL HISTORY: Lives with his in [place]. Drinks a glass of wine daily. No tobacco or illicit. ALLERGIES: Sulfa. HOME MEDICATIONS: Difene 50 mg at bedtime, Restoril 50 mg at bedtime, simvastatin 80 mg at bedtime, Zofran as needed, omega-3 fatty acids, multivitamin, melatonin 5 mg at bedtime, lispro sliding scale insulin, Tresiba 42 units daily, Lasix 20 mg daily, Coreg 12.5 mg twice daily, losartan 10 mg daily, aspirin 81, ascorbic acid, Tylenol. PHYSICAL EXAMINATION: VITAL SIGNS: Temperature 36.4 blood pressure is 154/98, heart rate in the 80s, respirations 16, 99% on room air. GENERAL: He is well appearing, smiling, sitting in bed, no acute distress. HEENT: PERRLA. Moist mucous membranes. CV: Regular rate and rhythm. Sternal incision site has healed well. No lower extremity edema. LUNGS: Clear. No crackles. ABDOMEN: Soft, nontender, nondistended. Positive bowel sounds. : No [place]. No suprapubic or CVA tenderness. MUSCULOSKELETAL: 5/5 upper and lower extremity strength. NEURO: 2 through 12 are intact. PSYCH: Alert and oriented x3. LABS: WBC 7, hemoglobin 12, hematocrit 48, platelets 44. Coags within normal. Sodium 143, potassium 5.0, chloride 103, carbon dioxide 26, BUN 25, creatinine is 1.4, baseline is 1.1 to 1.3. Urine +2 protein, +2 blood, 50-182 white. EKG, personally reviewed by me, T-wave inversions anterior leads V2 through V6 with reciprocal ST depressions in lateral leads. This is new compared to prior. Chest x-ray is personally reviewed by me. Sternotomy wires are in place. No effusion. ASSESSMENT AND PLAN: 1. Syncope: Differential is cardiac, dehydration, infection. He denies chest pain, shortness of breath at baseline. Troponin negative, but EKG with new T- wave inversions. This may be demand with possible urinary tract infection. Monitor on telemetry. Repeat troponin and EKG and we will discuss with [facility] in the morning. 2. Coronary artery disease, recent 3-vessel coronary artery bypass graft. Continue statin, beta black. Hold aspirin with hematuria. 3. Hematuria: Urinary tract infection versus kidney stone. CT pending. IV ceftriaxone. Culture pending. 4. Diabetes. Resume home insulin, hypertension, Edwin once kidney function improves. 5. Hyperlipidemia, statin. 6. Diet, cardiac. 7. Deep venous thrombosis prophylaxis: Sequential compression devices with hematuria. DISPOSITION: Patient warrants observation admission given acute syncope, hematuria requiring serial troponins, IV fluids. /[id number]/MODL MTDD
[2018-04-10] MEDS: CARVEDILOL 6.25 MG TAB PO SCH (21:55)
[2018-04-10] MEDS: ASCORBIC ACID 500 MG TAB PO SCH (21:55)
[2018-04-10] MEDS: NS 1,000 ML IV SCH (21:57)
[2018-04-10] MEDS ORDERED: D50W 25 GM/50 ML VIAL IVP PRN (22:16)
[2018-04-11] MEDS: NS 1,000 ML IV SCH (08:18)
[2018-04-11] MEDS ORDERED: BENAZEPRIL HCL 20 MG TAB PO SCH (09:00)
[2018-04-11] MEDS ORDERED: FUROSEMIDE 40 MG TAB PO SCH (09:00)
[2018-04-11] MEDS: ASCORBIC ACID 500 MG TAB PO SCH (09:45)
[2018-04-11] MEDS: CARVEDILOL 6.25 MG TAB PO SCH (09:45)
[2018-04-11] MEDS: INSULIN LISPRO 100 UNIT/ML SC SCH ×2 (09:51→12:02)
[2018-04-11] MEDS ORDERED: ONDANSETRON DISINTEGRATING 4 MG TAB PO PRN (10:58)
[2018-04-11] MEDS ORDERED: INSULIN DEGLUDEC 42 UNIT SQ SCH (11:00)
[2018-04-11] MEDS ORDERED: ASPIRIN 81 MG CHEWABLE TAB PO SCH (11:00)
[2018-04-11] MEDS ORDERED: PANTOPRAZOLE SODIUM 40 MG TAB PO SCH (11:15)
[2018-04-11 11:17] VITALS: BP 155/96
--- NOTE | 2018-04-11 12:12 | ASMTCMCOM ---
CM Note CM Note Notes: 04/11/2018 Case Management Note Met w/pt during rounds this morning. JOE signed. Pt admitted for abnormal ECG and hematuria. Pt had previous admission to [facility] February 2018. Pt is independent with ADL's prior to admission. Pt has supportive family in area. Lives with [place] [phone]. Daughter Jennifer can be reached at [phone]. Case Management d/c poc: independent with follow up as directed. Case Management available if needs change. Date Signed: 04/11/2018 12:11 PM Electronically Signed By:Lynn Chavarria RN
--- NOTE | 2018-04-11 12:59 | GDS ---
[f rep st] DISCHARGE SUMMARY DISCHARGE DIAGNOSES: 1. Near syncope, nausea, vomiting, possible vasovagal versus low blood sugar. 2. Gross hematuria, resolved. 3. Possible urinary tract infection. 4. Coronary artery disease, status post recent cardiac bypass surgery. 5. Chronic nausea. 6. Diabetes. 7. Dyslipidemia. PROCEDURES DONE: Abdominal pelvic CT scan. HOSPITAL COURSE: Mr. Piper is a 72-year-old man with the above past medical history, who presented to clinic with gross hematuria the night before. During his clinic visit, he became near syncopal an d started having nausea, vomiting. He was weak and was sent to the emergency room. Evaluation there revealed unremarkable labs and negative troponins. He also had an abdominal and pelvic CT scan done which showed no kidney stones or obvious kidney mass. He was admitted overnight for observation, an d had no further symptoms and felt back to baseline the next morning. Of note, on admission, his miguel angel ctrocardiogram was done which showed some new T-wave inversions. Unfortunately, these were only able to be compared to a pre-CABG EKG done, which is likely a new baseline for him. Since he had no ches t discomfort pain and his troponins were negative, I feel this is likely not significant and he can f ollow up with Dr. Man as an outpatient. CONDITION ON DISCHARGE: Good. DISCHARGE MEDICATIONS: Please see discharge medication form. FOLLOWUP INSTRUCTIONS: The patient needs to follow up with Internal Medicine Clinic in 1-2 weeks. F beny up with [facility] for his gross hematuria, to complete evaluation for that and follow up w [facility] for ongoing insomnia and possible sleep apnea. /[id number]/MODL
--- NOTE | 2018-04-11 15:44 | ASMTLACE ---
LACE Length of stay for Answers: Less than 1 day current admission Acuity / Level of Answers: No Care: Did the patient have an inpatient admission? Comorbidities - select Answers: Congestive heart failure all that apply Coronary Artery Disease Diabetes (uncontrolled or controlled) Moderate or severe liver or renal disease Previous myocardial infarction Other Notes: hyperlipidemia, h/o kidney stones, h/o afib # of Emergency department Answers: 1-2 visits in the last 6 months Score: 12 Date Signed: 04/11/2018 03:44 PM Electronically Signed By:Lynn Chavarria RN
--- NOTE | 2018-04-11 15:44 | ASDISCHSUM ---
Discharge Information Plan Status:Home with No Needs Medically Cleared to Leave:04/11/2018 Discharge Date:04/11/2018 01:57 PM CM D/C Disposition:Home, Routine, Self-Care ADT D/C Disposition:Home, Routine, Self-Care Projected Discharge Date:04/11/2018 01:57 PM Transportation at D/C: Discharge Delay Reason: Follow-Up Date:04/11/2018 01:57 PM Discharge Slot: Final Diagnosis: Placement Information Patient Contact Information Contact Name:TOMMY Relationship: Address:[address] Work Phone: City:[place] Alternate Phone: [facility]/Zip Code:[place] [address] Email: Financial Information Financial Class:Medicare Primary Plan Desc:MEDICARE OUTPATIENT Primary Plan Number:[id number] Secondary Plan Desc:[employer]/M[employer] SUPPLEMENT Secondary Plan Number:[id number] Assessment Information [facility] CM Progress Note CM Note CM Note Notes: 04/11/2018 Case Management Note Met w/pt during rounds this morning. TATYANA signed. Pt admitted for abnormal ECG and hematuria. Pt had previous admission to [facility] February 2018. Pt is independent with ADL's prior to admission. Pt has supportive family in area. Lives with [place]el [phone]. Daughter Jennifer can be reached at [phone]. Case Management d/c poc: independent with follow up as directed. Case Management available if needs change. Date Signed: 04/11/2018 12:11 PM Electronically Signed By:Lynn Chavarria RN Intervention Information Intervention Type:*TATYANA-Signed Date of Service:04/11/2018 03:43 PM Patient Type:Observation Staff Member:DEBBY Chavarria Hillary Hours: Discipline: Severity: Comment:
[2018-04-11] MEDS ORDERED: ATORVASTATIN CALCIUM 40 MG TAB PO SCH (21:00)
[2018-04-11] MEDS ORDERED: TEMAZEPAM 15 MG CAP PO SCH (21:00)
[2018-04-11] MEDS ORDERED: MELATONIN 3 MG TAB PO SCH (21:00)
[2018-04-12] MEDS ORDERED: MULTIVITAMINS W-MINERALS 1 EACH TAB PO SCH (09:00)
[2018-04-12] MEDS ORDERED: OMEGA-3 FATTY ACIDS 1,000 MG CAP PO SCH (09:00)
== END 2018-04-11 13:57 | disposition home or self-care (01) ==
LOC: EDUNIT# → F2W 18:19
PROVIDERS: ADMIT Internal Medicine; ATTEND Internal Medicine
DX: R55 Syncope and collapse (principal); R11.2 Nausea with vomiting, unspecified; R31.0 Gross hematuria; I25.10 Atherosclerotic heart disease of native coronary artery without angina pectoris; E11.9 Type 2 diabetes mellitus without complications; E78.5 Hyperlipidemia, unspecified; N18.3 Chronic kidney disease, stage 3 (moderate); I48.91 Unspecified atrial fibrillation; Z90.49 Acquired absence of other specified parts of digestive tract; Z95.1 Presence of aortocoronary bypass graft; Z95.5 Presence of coronary angioplasty implant and graft
CPT/HCPCS: 71046; 74176; 93005; 96361; 96372; 96374; 96376; 99285; G0378; J0696; 84484-PO